=== PATIENT | female | born 1995 | race Caucasian/White ===

== ENCOUNTER 2020-10-16 14:19 | Emergency (ER) | payer BC, MEDICAID, SELFPAY ==
[2020-10-16 14:31] VITALS: BP 128/74; PULSE 66; RESP 20; TEMP 36.7; O2SAT 98; BMI 33.2
--- NOTE | 2020-10-16 14:36 | HMH.EDUTC ---
[facility] – [place] Disposition Clinical Impression: Encounter for laboratory testing for COVID-19 virus Disposition: Home, Self-Care Condition on Discharge: Good Instructions: Preventing the Spread of Coronavirus Discharge Instructions Additional Instructions: *Monitor Temp, Over the counter Motrin or Tylenol as directed/as needed Tylenol every 4 hours and Motrin every 6 hours (as long as your family doctor has told you that you can take it) for fever or pain. and straight to ER if unable to lower temp less than 101.0 after medication given *Warm salt water gargles may help to soothe the throat *Throat Lozenges *Warm fluids like tea with honey may help to soothe the throat *Sleep elevated *Humidifier/Vaporizer Follow up IMMEDIATELY for new or worsening symptoms or no Noticeable improvement over the next 48-72 hours. 911 for difficulty breathing or swallowing You was tested for today for COVID19 your test result should be back in the next 24-48 hours, you may call to the [facility] later today or tomorrow to see if your test results are back and the result [phone] [facility] hours are 9am-9pm You was given a handout with instructions for Self Quarantine and Self isolation for while you wait on test results and what to do if they are positive If you are positive the Health Dept will be contacting you also Referrals: Malathi Garrison APRN [Primary Care Provider] - As needed Forms: Work/School Release Time of Disposition: 14:40 Medical Decision Making - Dwight Inquiry Pt receiving controlled substance: No Dwight was queried for this patient: No Vital Signs: 10/16/20 14:31 Temperature 98.1 F Temperature Source Oral Pulse Rate [Radial] 66 Respiratory Rate 20 Blood Pressure [Right Arm] 128/74 Blood Pressure Mean [Right Arm] 92 Blood Pressure Source [Right Arm] Automatic Cuff Blood Pressure Position [Right Arm] Sitting 02 Sat by Pulse Oximetry 98 Oxygen Delivery Method Room Air Orders (Tests/Meds): ORDERS Category Date Time Status Covid-19 Nasal PCR Sendout [place] Routine Lab 10/16/20 14:26 Ordered [facility] [place] HPI - General Stated complaint: covid test Time Seen by Provider: 10/16/20 14:36 Mode of Arrival: Ambulatory Source of Information: Patient Limitations: No Limitations Description of Symptoms (Recalled from Triage Doc. by RN): covid test HEENT Symptoms (Recalled from RN notes): No Resp Symptoms (Recalled from RN notes): No Skin Symptoms (Recalled from RN notes): No MS Symptoms (Recalled from RN notes): No Functional Status (Recalled from RN notes): wnl - History of Present Illness Provider Complaint: Patient states that she was exposed to someone who tested positive for COVID States that they are unsure of how long her family member had it and how many times she may have been exposed Denies symptoms - Related Data Allergies Allergy/AdvReac Type Severity Reaction Status Date / Time No Known Allergies Allergy Unverified 11/16/17 15:27 - Worker's Comp Is this a Worker's Comp case?: No [facility] History - Hepatitis A Screen Drug use history?: No High risk sexual behaviors?: No History of sexually transmitted infection?: No Currently employed?: No Childcare worker?: No Do you have indoor plumbing?: Yes Do you have electricity?: Yes Attestation statement:: This patient has been screened for Hepatitis A risk factors. I have reviewed the patient's past medical history: Yes - Social History Alcohol Intake: never Occupational Status: other ROS Obtained: Yes All systems reviewed & no additional complaints, Yes Systems reviewed as appropriate & no additional complaints - Constitutional Constitutional: Reports system reviewed and no additional complaints, except as docu, Denies body ache, Denies chills, Denies fever(s), Denies headache(s) - ENT Ears, Nose, Mouth, and Throat: Reports system reviewed and no additional complaints, except as docu - Cardiovascular Cardiovascular: Reports system reviewed and no rachel
[2020-10-16 14:45] VITALS: BP 128/74; PULSE 66; RESP 20; TEMP 36.7; O2SAT 98
[2020-10-17 09:39] LABS: Adenovirus,PCR Not Detected (NotDetected); Bordetella Pertussis Not Detected (NotDetected); Chlamydophila Pneumoniae, PCR Not Detected (NotDetected); Coronavirus 19, PCR Not Detected (NotDetected); Coronavirus 229E Not Detected (NotDetected); Coronavirus NL63 Not Detected (NotDetected); Coronavirus OC43 Not Detected (NotDetected); Coronovirus HKU1,PCR Not Detected (NotDetected); Human Metapneumovirus Not Detected (NotDetected); Influenza A, PCR Not Detected (NotDetected); Influenza AH1, 2009 Not Detected (NotDetected); Influenza AH1, PCR Not Detected (NotDetected); Influenza AH3,PCR Not Detected (NotDetected); Influenza B, PCR Not Detected (NotDetected); Mycoplasma Pneumoniae, PCR Not Detected (NotDetected); Parainfluenza 1, PCR Not Detected (NotDetected); Parainfluenza 2, PCR Not Detected (NotDetected); Parainfluenza 3, PCR Not Detected (NotDetected); Parainfluenza 4, PCR Not Detected (NotDetected); Respiratory Syncytial Virus Not Detected (NotDetected); Rhinovirus/Enterovirus Not Detected (NotDetected)
== END 2020-10-16 14:47 | disposition home or self-care (01) ==
PROVIDERS: Emergency Provider Nurse Practitioner; PCP Nurse Practitioner
DX: Z20.828 Contact with and (suspected) exposure to other viral communicable diseases (principal)
CPT/HCPCS: 87581; 87633; 87798; 99201; U0003; U0004

== ENCOUNTER 2020-10-21 18:26 | Emergency (ER) | payer BC, MEDICAID, SELFPAY ==
[2020-10-21 18:30] VITALS: BP 111/79; PULSE 82; RESP 20; TEMP 36.9; O2SAT 99; BMI 33.2
--- NOTE | 2020-10-21 18:45 | HMH.EDUTC ---
[facility] – [place] Disposition Clinical Impression: Encounter for laboratory testing for COVID-19 virus Disposition: Home, Self-Care Condition on Discharge: Good Instructions: Preventing the Spread of Coronavirus Discharge Instructions Additional Instructions: *Monitor Temp, Over the counter Motrin or Tylenol as directed/as needed Tylenol every 4 hours and Motrin every 6 hours (as long as your family doctor has told you that you can take it) for fever or pain. and straight to ER if unable to lower temp less than 101.0 after medication given *Warm salt water gargles may help to soothe the throat *Throat Lozenges *Warm fluids like tea with honey may help to soothe the throat *Sleep elevated *Humidifier/Vaporizer Follow up IMMEDIATELY for new or worsening symptoms or no Noticeable improvement over the next 48-72 hours. 911 for difficulty breathing or swallowing You was tested for today for COVID19 your test result should be back in the next 24-48 hours, you may call to the [facility] later today or tomorrow to see if your test results are back and the result [phone] [facility] hours are 9am-9pm You was given a handout with instructions for Self Quarantine and Self isolation for while you wait on test results and what to do if they are positive If you are positive the Health Dept will be contacting you also Referrals: Malathi Garrison APRN [Primary Care Provider] - As needed Forms: Work/School Release Time of Disposition: 18:55 Medical Decision Making - Dwight Inquiry Pt receiving controlled substance: No Dwight was queried for this patient: No Vital Signs: 10/21/20 18:30 Temperature 98.4 F Temperature Source Oral Pulse Rate [Right Brachial] 82 Respiratory Rate 20 Blood Pressure [Right Arm] 111/79 Blood Pressure Mean [Right Arm] 89 Blood Pressure Source [Right Arm] Automatic Cuff Blood Pressure Position [Right Arm] Sitting 02 Sat by Pulse Oximetry 99 Oxygen Delivery Method Room Air - Lab Data Lab results reviewed: Yes: I reviewed the patient's lab results. [facility] [place] HPI - General Stated complaint: cov test Time Seen by Provider: 10/21/20 18:45 Mode of Arrival: Ambulatory Source of Information: Patient Limitations: No Limitations Description of Symptoms (Recalled from Triage Doc. by RN): PATIENT REQUESTING COVID TEST D/T EXPOSURE; C/O HEADACHE, FATIGUE, AND BILATERAL PINK EYE X 4 DAYS HEENT Symptoms (Recalled from RN notes): Yes Resp Symptoms (Recalled from RN notes): No Skin Symptoms (Recalled from RN notes): No MS Symptoms (Recalled from RN notes): No Functional Status (Recalled from RN notes): WNL - History of Present Illness Provider Complaint: Patient states that she did a virtual visit with PCP about 4-5 days ago States that she has had pink eye and has been using erythromycin drops and that is much better States that she was needing to come in and get tested for COVID due to her PCP recommended that she get tested because conjunctivitis is a symptoms of COVID and she was recently exposed by her parents - Related Data Home Medications Medication Instructions Recorded Confirmed Sertraline HCl [Zoloft 50mg tablet] 50 mg PO DAILY 10/21/20 10/21/20 Allergies Allergy/AdvReac Type Severity Reaction Status Date / Time No Known Allergies Allergy Verified 10/21/20 18:43 - Worker's Comp Is this a Worker's Comp case?: No [facility] History - Hepatitis A Screen Drug use history?: No High risk sexual behaviors?: No History of sexually transmitted infection?: No Currently employed?: No Childcare worker?: No Do you have indoor plumbing?: Yes Do you have electricity?: Yes Attestation statement:: This patient has been screened for Hepatitis A risk factors. I have reviewed the patient's past medical history: Yes - Social History Alcohol Intake: never Occupational Status: other ROS Obtained: Yes All systems reviewed & no additional complaints, Yes Systems reviewed as appropriate & no additional complaints - Constitu
[2020-10-21 18:54] LABS: UTC Pregnancy Test, Urine Negative (Negative)
[2020-10-21 19:01] VITALS: BP 111/79; PULSE 82; RESP 20; TEMP 36.9; O2SAT 99
[2020-10-23 15:15] LABS: Covid-19 Nasal PCR Sendout Lex Positive
== END 2020-10-21 19:03 | disposition home or self-care (01) ==
PROVIDERS: Emergency Provider Nurse Practitioner; PCP Nurse Practitioner
DX: U07.1 COVID-19 (principal); H10.33 Unspecified acute conjunctivitis, bilateral
CPT/HCPCS: 81025; 99202; U0004

== ENCOUNTER 2020-11-03 15:55 | Emergency (ER) | payer BC, MEDICAID, SELFPAY ==
[2020-11-03 16:20] VITALS: BP 143/88; PULSE 95; RESP 16; TEMP 36.7; O2SAT 94; BMI 32.2
--- NOTE | 2020-11-03 16:41 | HMH.EDUTC ---
[facility] [place] Clinical Impression: Encounter for laboratory testing for COVID-19 virus Disposition: Home, Self-Care Condition on Discharge: Good Instructions: Preventing the Spread of Coronavirus Discharge Instructions Referrals: Malathi Garrison APRN [Primary Care Provider] - Time of Disposition: 16:44 Medical Decision Making - Dwight Inquiry Pt receiving controlled substance: No Vital Signs: 11/03/20 16:20 Temperature 98.0 F Temperature Source Oral Pulse Rate [Right Brachial] 95 H Respiratory Rate 16 Blood Pressure [Right Arm] 143/88 H Blood Pressure Mean [Right Arm] 106 Blood Pressure Source [Right Arm] Automatic Cuff Blood Pressure Position [Right Arm] Sitting 02 Sat by Pulse Oximetry 94 L Oxygen Delivery Method Room Air Orders (Tests/Meds): ORDERS Category Date Time Status Covid-19 Nasal PCR ([facility]) Routine Lab 11/03/20 16:11 Ordered [facility] [place] - General Chief complaint: [facility] Stated complaint: covid +, retest for work Time Seen by Provider: 11/03/20 16:41 Mode of Arrival: Ambulatory Source of Information: Patient Limitations: No Limitations Description of Symptoms (Recalled from Triage Doc. by RN): PATIENT TESTED POSITIVE FOR COVID ON 10/21 AND IS NEEDING A NEGATIVE TEST TO RETURN TO WORK HEENT Symptoms (Recalled from RN notes): No Resp Symptoms (Recalled from RN notes): No Skin Symptoms (Recalled from RN notes): No MS Symptoms (Recalled from RN notes): No Functional Status (Recalled from RN notes): WNL - History of Present Illness Provider Complaint: 25 yr old female presents for covid test. pt states she tested positive on 10/21 and isolated by now needs to retest to return to work. pt states all symptoms has gone away - Related Data Home Medications Medication Instructions Recorded Confirmed Sertraline HCl [Zoloft 50mg tablet] 50 mg PO DAILY 10/21/20 10/21/20 Allergies Allergy/AdvReac Type Severity Reaction Status Date / Time No Known Allergies Allergy Verified 10/21/20 18:43 - Worker's Comp Is this a Worker's Comp case?: No [facility] History - Hepatitis A Screen Drug use history?: No High risk sexual behaviors?: No History of sexually transmitted infection?: No Currently employed?: No Childcare worker?: No Do you have indoor plumbing?: Yes Do you have electricity?: Yes Attestation statement:: This patient has been screened for Hepatitis A risk factors. I have reviewed the patient's past medical history: Yes - Social History Alcohol Intake: never Occupational Status: other ROS Obtained: Yes Systems reviewed as appropriate & no additional complaints - Constitutional Constitutional: Reports system reviewed and no additional complaints, except as docu, Denies fever(s) - Eyes Eyes: Reports system reviewed and no additional complaints, except as docu, Denies change in vision - ENT Ears, Nose, Mouth, and Throat: Reports system reviewed and no additional complaints, except as docu, Denies sore throat - Cardiovascular Cardiovascular: Reports system reviewed and no additional complaints, except as docu, Denies chest pain at rest - Respiratory Respiratory: Yes system reviewed and no additional complaints, except as docu, No chest congestion - Gastrointestinal Gastrointestingal: Reports: system reviewed and no additional complaints, except as docu. Denies: nausea - Genitourinary Female Genitourinary: Reports system reviewed and no additional complaints, except as docu - Musculoskeletal Musculoskeletal: Reports system reviewed and no additional complaints, except as docu, Denies joint pain - Integumentary/Breasts Skin/Breast: Reports system reviewed and no additional complaints, except as docu, Denies rash - Neurologic Neurologic: Reports system reviewed and no additional complaints, except as docu, Denies dizziness - Endocrine Endocrine: Reports system reviewed and no additional complaints, except as docu, Denies fatigue - He
[2020-11-03 16:48] VITALS: BP 143/88; PULSE 95; RESP 16; TEMP 36.7; O2SAT 94
== END 2020-11-03 16:50 | disposition home or self-care (01) ==
PROVIDERS: Emergency Provider Nurse Practitioner Family; PCP Nurse Practitioner
DX: U07.1 COVID-19 (principal)
CPT/HCPCS: 99201; U0003

== ENCOUNTER → 2022-10-16 18:45 | Outpatient (CLI) | payer BC, MEDICAID, SELFPAY ==
[2022-10-16 19:17] LABS: Coronavirus 19, PCR Not Detected (NotDetected); Influenza A, PCR Not Detected (NotDetected); Influenza B, PCR Not Detected (NotDetected)
== END ==
PROVIDERS: PCP Physician Assistant; Visit Provider Physician Assistant
DX: R52 Pain, unspecified (principal)
CPT/HCPCS: C9803; U0003; U0005

== ENCOUNTER → 2023-01-16 12:33 | Outpatient (CLI) | payer BC, MEDICAID, SELFPAY ==
[2023-01-17 12:09] LABS: Progesterone 12.6 ng/mL (.)
== END ==
PROVIDERS: PCP Nurse Practitioner; Visit Provider Obstetrics & Gynecology
DX: N92.6 Irregular menstruation, unspecified (principal); Z32.00 Encounter for pregnancy test, result unknown
CPT/HCPCS: 36415; 84144; 84702

== ENCOUNTER → 2023-01-19 09:59 | Outpatient (CLI) | payer BC, SELFPAY ==
[2023-01-19 10:58] LABS: Basophils # 0.1 K/mm3 (0-0.2); Basophils % 0.7 % (0.1-2.0); Eosinophils # 0.1 K/mm3 (0.0-0.4); Eosinophils % 0.9 % (0.1-12.0); Hematocrit 42.1 % (37.0-47.0); Hemoglobin 13.4 g/dL (12.2-16.2); Lymphocytes # 1.2 K/mm3 (0.7-4.5); Lymphocytes % 17.6 % (10-50); Mean Corpuscular HGB Conc 31.8 g/dL (31.8-35.4); Mean Corpuscular Hemoglobin 25.7 pg (27.0-31.2); Mean Corpuscular Volume 80.9 fl (81-99); Mean Platelet Volume 9.8 fl (7.4-10.4); Monocytes # 0.4 K/mm3 (0.1-1.0); Monocytes % 5.7 % (1.7-9.3); Neutrophils % 75.1 % (37.0-80.0); Platelet Count 223 K/mm3 (142-424); Red Blood Count 5.21 M/mm3 (4.20-5.40); Red Cell Distribution Width 15.5 % (11.5-17.5); White Blood Count 6.7 K/mm3 (4.8-10.8)
[2023-01-20 05:29] LABS: Rubella Antibodies, IgG 1.71 index (Immune >0.99)
[2023-01-20 08:16] LABS: HIV Screen 4th Generation wRfx Non Reactive (Non Reactive)
[2023-01-20 11:22] LABS: Rapid Plasma Reagin Ab Titer Non Reactive (NonRea<1:1)
[2023-01-21 23:04] LABS: Hepatitis B Surface Antigen NEGATIVE; Hepatitis C Antibody NON REACTIVE
== END ==
PROVIDERS: PCP Nurse Practitioner; Visit Provider Obstetrics & Gynecology
DX: Z34.90 Encounter for supervision of normal pregnancy, unspecified, unspecified trimester (principal)
CPT/HCPCS: 36415; 85025; 86593; 86703; 86762; 86850; 87086; 87340; 87380; G0432

== ENCOUNTER → 2023-01-25 23:27 | Outpatient (CLI) | payer BC, SELFPAY ==
[2023-01-25 19:16] LABS: Adenovirus,PCR Not Detected (NotDetected); Bordetella Pertussis Not Detected (NotDetected); Chlamydophila Pneumoniae, PCR Not Detected (NotDetected); Coronavirus 19, PCR Not Detected (NotDetected); Coronavirus 229E Not Detected (NotDetected); Coronavirus NL63 Not Detected (NotDetected); Coronavirus OC43 Not Detected (NotDetected); Coronovirus HKU1,PCR Not Detected (NotDetected); Human Metapneumovirus Not Detected (NotDetected); Influenza A, PCR Not Detected (NotDetected); Influenza AH1, 2009 Not Detected (NotDetected); Influenza AH1, PCR Not Detected (NotDetected); Influenza AH3,PCR Not Detected (NotDetected); Influenza B, PCR Not Detected (NotDetected); Mycoplasma Pneumoniae, PCR Not Detected (NotDetected); Parainfluenza 1, PCR Not Detected (NotDetected); Parainfluenza 2, PCR Not Detected (NotDetected); Parainfluenza 3, PCR Not Detected (NotDetected); Parainfluenza 4, PCR Not Detected (NotDetected); Respiratory Syncytial Virus Not Detected (NotDetected); Rhinovirus/Enterovirus Not Detected (NotDetected)
[2023-01-25 19:40] LABS: Basophils % 0.4 % (0.1-2.0); Eosinophils # 0.2 K/mm3 (0.0-0.4); Eosinophils % 1.7 % (0.1-12.0); Hematocrit 40.1 % (37.0-47.0); Hemoglobin 13.1 g/dL (12.2-16.2); Lymphocytes % 11.8 % (10-50); Mean Corpuscular HGB Conc 32.7 g/dL (31.8-35.4); Mean Corpuscular Hemoglobin 26.5 pg (27.0-31.2); Mean Corpuscular Volume 80.8 fl (81-99); Mean Platelet Volume 10.6 fl (7.4-10.4); Monocytes # 0.5 K/mm3 (0.1-1.0); Monocytes % 5.3 % (1.7-9.3); Neutrophils # 7.1 K/mm3 (1.8-7.8); Neutrophils % 80.9 % (37.0-80.0); Platelet Count 226 K/mm3 (142-424); Red Blood Count 4.96 M/mm3 (4.20-5.40); Red Cell Distribution Width 15.6 % (11.5-17.5); White Blood Count 8.8 K/mm3 (4.8-10.8)
== END ==
PROVIDERS: PCP Nurse Practitioner; Visit Provider Nurse Practitioner
DX: J06.9 Acute upper respiratory infection, unspecified (principal)
CPT/HCPCS: 85025; 87581; 87632; 87798; C9803; U0003; U0005

== ENCOUNTER 2023-02-26 20:47 | Emergency (ER) | payer BC, MEDICAID, SELFPAY ==
[2023-02-26 20:55] VITALS: BP 132/98; PULSE 79; RESP 19; TEMP 36.8; O2SAT 98; BMI 35.2
[2023-02-26 21:30] VITALS: BP 120/64
--- NOTE | 2023-02-26 21:42 | HMH.EDGIBL ---
Discharge Plan Disposition Patient Disposition: Home, Self-Care Chief Complaint: Urogenital-Female Prescriptions Prescriptions: No Action prenat.vits,indy,[id number]-sotmo Tablet 1 tab PO DAILY ondansetron 4 mg tablet,disintegrating 4 mg PO Q8H PRN (Reason: nausea and vomiting) Qty: 60 0RF Referrals Follow up/Referrals: Malathi Garrison APRN [Primary Care Provider] - See instructions Clinical Impressions Clinical Impression: Constipation Instructions Patient Instructions: DI for Urinary Tract Infection (UTI), DI for Urinary Tract Infection in Children Discharge ED Provider: [facility] HPI General Chief complaint: Urogenital-Female Stated complaint: 12 Wk Pred Time Seen by Provider: 02/26/23 21:42 Mode of Arrival: Family Vehicle Source of Information: Patient Limitations: No Limitations Description of Symptoms (Recalled from ER Triage Doc. by RN): 27 yo female presents with CC CONSTIPATION. States she is with history of constipation during the previous . Currently is complicated by a possible hemorrhoid. Patient states she has attempted oral docusate and enema earlier with only a few rabbit turds . would like to be evaluated. History of Present Illness HPI Narrative: 27-year-old white female presents with complaint of constipation. She is 12 weeks and has history of constipation for which she takes laxatives but today she spent 2 hours straining and was unable to have a bowel movement she feels like the stool is right down in the rectum but she cannot pass it she is also noted that the straining is caused some bleeding from some hemorrhoids as well. The patient has no known drug allergies and no other medical problems Related Data Home Medications Medication Instructions Recorded Confirmed prenat.vits,indy,iqa-kzrr-ktalg 1 tab PO DAILY Supplement 01/19/23 02/26/23 Previous Rx's Medication Instructions Recorded ondansetron 4 mg disintegrating 4 mg PO Q8H PRN nausea and 02/08/23 tablet vomiting #60 tabs Allergies Allergy/AdvReac Type Severity Reaction Status Date / Time No Known Allergies Allergy Verified 02/23/23 12:58 [facility] Disclaimer: The information contained in this section may have been updated after the patient was seen, as this information can be updated by other users. Medical History Anxiety Depressed Surgical History Hx of wisdom tooth extraction Family History Other Diabetes FHx: mental illness Hypertension Thyroid disorder Social History Smoking Status: Never smoker alcohol intake: never substance use type: denies use current occupational status: employed and other Travel in the last 8 weeks: None ROS Obtained: Yes All systems reviewed & no additional complaints except as documented Physical Exam General General appearance: alert and in no apparent distress Head Head exam: atraumatic and normocephalic Eye Eye exam: Present normal appearance and PERRL Neck Neck exam: Present normal inspection Chest Chest inspection: Present normal inspection Respiratory Respiratory exam: Present wheezes (Bilateral faint generalized wheezes) Cardiovascular Cardiovascular exam: Present regular rate and normal rhythm Abdominal Exam Abdominal exam: Present soft; Absent distention or tenderness Neurological Exam Neurological exam: Present alert and oriented X3 Medical Decision Making Medical Records MR Comment: 27-year-old white female presented with constipation. She had strained actually rectal bleeding from the straining. She is 12 weeks and has been taking laxatives in the form of docusate but is still constipated. We have checked her for a fecal impaction and it was really too high to disimp
[2023-02-27 00:16] VITALS: BP 112/70; PULSE 73; RESP 17; TEMP 36.8; O2SAT 98
== END 2023-02-27 00:27 | disposition home or self-care (01) ==
PROVIDERS: Emergency Provider Emergency Medicine; PCP Nurse Practitioner
DX: O99.611 Diseases of the digestive system complicating pregnancy, first trimester (principal); K59.00 Constipation, unspecified; Z3A.12 12 weeks gestation of pregnancy
CPT/HCPCS: 96372; 99283; 99284

== ENCOUNTER → 2023-04-20 12:43 | Outpatient (CLI) | payer BC, MEDICAID, SELFPAY ==
--- NOTE | 2023-04-20 12:43 | US_ITS ---
FINAL REPORT CLINICAL HISTORY: 20 weeks anatomy scan please use anatomy tempate FINDINGS: There is a single live intrauterine gestation. Presentation is breech. The cervix is closed and measures 3.6 cm. Placenta is posterior grade 1. movement is noted. Heart rate is detected at 121 beats per minute. Three-vessel cord with satisfactory umbilical cord insertion. Four-chamber heart is noted. ABDOMEN: Both kidneys are unremarkable. Stomach is unremarkable. SPINE: No anomalies identified. AMNIOTIC FLUID: Appropriate amount. MEASUREMENTS: ULTRASOUND AGE: 19 weeks 6 days. GESTATION AGE: 20 weeks 0 days. ESTIMATED WEIGHT: 337 g GROWTH PERCENTILE: 56 % BPD: 4.43 cm corresponding to 19 weeks 3 days. OFD: 5.95 cm corresponding to 20 weeks 3 days. HC: 16.48 cm corresponding to 19 weeks 2 days. AC: 15.27 cm corresponding to 20 weeks 4 days. FL: 3.25 cm corresponding to 20 weeks 1 days. CEREBELLUM: 1.88 cm corresponding to 19 weeks 3 days. HUMERUS: 3.05 cm corresponding to 20 weeks 1 day. HC/AC: 1.08 CI: 74% FL/BPD: 73% FL/AC: 21% IMPRESSION: Single living IUP with an ultrasound age of 19 weeks 6 days. Reviewed, Interpreted and Dictated by Rancho Kraft III, MD Transcribed by Hina Quinn Authenticated and . [facility]
== END ==
PROVIDERS: PCP Nurse Practitioner; Visit Provider Obstetrics & Gynecology
DX: Z34.90 Encounter for supervision of normal pregnancy, unspecified, unspecified trimester (principal); Z3A.20 20 weeks gestation of pregnancy
CPT/HCPCS: 76811

== ENCOUNTER → 2023-06-15 07:56 | Outpatient (CLI) | payer BC, MEDICAID, SELFPAY ==
[2023-06-15 08:29] LABS: Glucose,Fasting 92 mg/dl (74-100)
[2023-06-15 08:30] LABS: Basophils % 0.2 % (0.1-2.0); Eosinophils # 0.1 K/mm3 (0.0-0.4); Hematocrit 36.7 % (37.0-47.0); Hemoglobin 12.1 g/dL (12.2-16.2); Lymphocytes # 1.2 K/mm3 (0.7-4.5); Lymphocytes % 18.8 % (10-50); Mean Corpuscular HGB Conc 32.9 g/dL (31.8-35.4); Mean Corpuscular Hemoglobin 26.5 pg (27.0-31.2); Mean Corpuscular Volume 80.6 fl (81-99); Mean Platelet Volume 10.9 fl (7.4-10.4); Monocytes # 0.4 K/mm3 (0.1-1.0); Monocytes % 6.4 % (1.7-9.3); Neutrophils # 4.8 K/mm3 (1.8-7.8); Neutrophils % 73.5 % (37.0-80.0); Platelet Count 168 K/mm3 (142-424); Red Blood Count 4.55 M/mm3 (4.20-5.40); Red Cell Distribution Width 15.3 % (11.5-17.5); White Blood Count 6.5 K/mm3 (4.8-10.8)
[2023-06-15 08:44] LABS: Amphetamine/Metha Screen,Urine Negative ng/ml (<1000); Benzodiazepines Screen,Urine Negative ng/ml (<200)
[2023-06-15 08:45] LABS: Barbiturates Screen,Urine Negative ng/ml (<200)
[2023-06-15 08:46] LABS: Cannabinoid Screen,Urine Negative ng/ml (<50); Cocaine Screen,Urine Negative ng/ml (<300)
[2023-06-15 08:47] LABS: Methadone Screen,Urine Negative ng/ml (<300); Opiate Screen,Urine Negative ng/ml (<300)
[2023-06-15 08:48] LABS: Phencyclidine Screen,Urine Negative ng/ml (<25)
[2023-06-15 10:00] LABS: Glucose 1 Hour 132 mg/dL (74-100)
== END ==
PROVIDERS: PCP Nurse Practitioner; Visit Provider Obstetrics & Gynecology
DX: Z34.93 Encounter for supervision of normal pregnancy, unspecified, third trimester (principal); Z3A.29 29 weeks gestation of pregnancy
CPT/HCPCS: 36415; 80305; 82951; 85025

== ENCOUNTER → 2023-07-20 14:45 | Outpatient (CLI) | payer BC, MEDICAID, SELFPAY ==
--- NOTE | 2023-07-20 14:54 | ECG_ITS ---
APPROVED REPORT Exam: Resting ECG HR:101 bpm ECG Measurements Heart Rate 101 AXES [place] 116 P 18 QRSd 90 QRS 10 QT 329 T 0 QTc 387 Conclusion SINUS TACHYCARDIA WITH SHORT [place] INTERVAL VOLTAGE CRITERIA FOR LVH [MEETS CRITERIA IN ONE OF: R(aVL), S(V1), R(V5), R(V5/V6)+S(V1)] NONSPECIFIC T-WAVE ABNORMALITY ABNORMAL ECG UNCONFIRMED REPORT Electronically signed by : Felipe Sheikh MD 07/20/2023 19:40:12
== END ==
PROVIDERS: PCP Nurse Practitioner; Visit Provider Nurse Practitioner Obstetrics & Gynecology
DX: R06.02 Shortness of breath (principal)
CPT/HCPCS: 93005

== ENCOUNTER → 2023-08-04 11:41 | Outpatient (CLI) | payer BC, MEDICAID, SELFPAY ==
[2023-08-04 12:43] LABS: Chloride 105 mmol/L (98-107); Sodium 135 mmol/L (136-145)
[2023-08-04 12:46] LABS: Alanine Aminotransferase 28 U/L (12-78); Alkaline Phosphatase 202 U/L (38-126); Aspartate Amino Transferase 35 U/L (14-36); Bilirubin,Direct 0.3 mg/dl (0.0-0.4); Bilirubin,Total 0.3 mg/dl (0.2-1.3); Blood Urea Nitrogen 7 mg/dl (7-17); Carbon Dioxide 21 mmol/L (22.0-30.0); Estimated Glomerular Filt Rate 189 ml/min (>60); GFR (African American) 228 ML/MIN (>60)
[2023-08-04 12:47] LABS: Albumin Level 3.1 g/dl (3.5-5.0); Calcium 9.2 mg/dl (8.4-10.2); Chol/HDL Ratio 4.4 (1-3.5); Cholesterol 279 mg/dl (140-200); Glucose 97 mg/dl (74-100); HDL Cholesterol 63 mg/dl (40-60); Magnesium 1.7 mg/dl (1.6-2.3); Total Protein,Serum 6.2 g/dl (6.3-8.2); Triglycerides 209 mg/dl (30-150); VLDL Cholesterol 42 mg/dL (0-40)
[2023-08-04 12:52] LABS: Basophils % 0.3 % (0.1-2.0); Eosinophils # 0.1 K/mm3 (0.0-0.4); Eosinophils % 0.8 % (0.1-12.0); Hematocrit 36.5 % (37.0-47.0); Hemoglobin 11.7 g/dL (12.2-16.2); Lymphocytes % 14.1 % (10-50); Mean Corpuscular HGB Conc 32.1 g/dL (31.8-35.4); Mean Corpuscular Hemoglobin 24.6 pg (27.0-31.2); Mean Corpuscular Volume 76.6 fl (81-99); Mean Platelet Volume 11.8 fl (7.4-10.4); Monocytes # 0.4 K/mm3 (0.1-1.0); Monocytes % 5.3 % (1.7-9.3); Neutrophils # 5.3 K/mm3 (1.8-7.8); Neutrophils % 79.4 % (37.0-80.0); Platelet Count 152 K/mm3 (142-424); Red Blood Count 4.76 M/mm3 (4.20-5.40); Red Cell Distribution Width 15.4 % (11.5-17.5); White Blood Count 6.7 K/mm3 (4.8-10.8)
[2023-08-04 13:02] LABS: Free T4 (Free Thyroxine) 0.75 ng/dl (0.78-2.19)
[2023-08-04 13:17] LABS: Thyroid Stimulating Hormone 0.87 uIU/mL (0.465-4.68)
== END ==
PROVIDERS: PCP Nurse Practitioner; Visit Provider Physician Assistant
DX: R06.00 Dyspnea, unspecified (principal); O99.413 Diseases of the circulatory system complicating pregnancy, third trimester; Z3A.35 35 weeks gestation of pregnancy; I47.1 Supraventricular tachycardia; R60.0 Localized edema; R94.31 Abnormal electrocardiogram [ECG] [EKG]
CPT/HCPCS: 36415; 80048; 80061; 80076; 83735; 84439; 84443; 85025

== ENCOUNTER → 2023-08-06 14:45 | Outpatient (CLI) | payer BC, MEDICAID, SELFPAY ==
--- NOTE | 2023-08-06 14:46 | US_ITS ---
PROCEDURE: US OB BIOPHYSICAL PROFILE CLINICAL INDICATION: lga COMPARISON: 20 week anatomical scan April 20, 2023 FINDINGS: Transabdominal sonographic images of the uterus were obtained. From her established due date she is 35weeks 3days. The following parameters are obtained: Viable fetus in the cephalic presentation with a fundal placenta grade 2. Average ultrasound age is 36weeks 0 days. Estimated due date by ultrasound is 09/03/2023. Estimated weight is 6lb 2.34oz. 61 percentile. heart rate: 125bpm bpm. BPD: 36weeks 6days OFD: 36weeks 6days HC: 36 weeks 0 days AC: 36 weeks 1 day FL: 35 weeks 2 days HC/AC: 0.99 Cephalic index: 0.81 FL/BPD: 0.76 FL/AC: 0.21 Amniotic fluid index: 9.22cm Qualitative AFV: 2 breathing movements: 2 Gross body movements: 2 Tone: 2 Biophysical profile score: 8 No obvious anomalies evident.Right kidney, four-chamber heart, three-vessel cord appear normal. The left kidney is significantly dilated at the renal pelvis and the dilation measures 21 mm. IMPRESSION: 1. Viable fetus in the cephalic presentation with a fundal placenta grade 1. 2. The fluid is within normal limits with an amniotic fluid index of 9.22 cm. 3. There is gross dilation of the pelvis of the left kidney. It measures 21 mm. At the 20 week anatomical scan there was 6.1 mm of left renal pelvis dilation. 4. Suggest pediatric urology consult post delivery. 5. Rest of the anatomical scan appears normal. 6. There has been good interval growth with the fetus currently 61st percentile. Dictated by: Dipesh Farrell MD 08/09/2023 09:47 Dipesh Farrell MD in OV 08/09/2023 09:47
[2023-08-06 17:00] LABS: Alanine Aminotransferase 36 U/L (12-78); Aspartate Amino Transferase 41 U/L (14-36)
[2023-08-06 17:01] LABS: Albumin Level 2.9 g/dl (3.5-5.0); Alkaline Phosphatase 193 U/L (38-126); Bilirubin,Direct 0.3 mg/dl (0.0-0.4); Bilirubin,Total 0.3 mg/dl (0.2-1.3); Cholesterol 258 mg/dl (140-200); Total Protein,Serum 5.8 g/dl (6.3-8.2); Triglycerides 255 mg/dl (30-150); VLDL Cholesterol 51 mg/dL (0-40)
[2023-08-06 18:28] LABS: Chol/HDL Ratio 4.9 (1-3.5); HDL Cholesterol 53 mg/dl (40-60)
== END ==
PROVIDERS: Physician Assistant; PCP Nurse Practitioner; Visit Provider Nurse Practitioner Obstetrics & Gynecology
DX: O36.60X0 Maternal care for excessive fetal growth, unspecified trimester, not applicable or unspecified (principal); R06.00 Dyspnea, unspecified; R60.0 Localized edema; R94.31 Abnormal electrocardiogram [ECG] [EKG]; Z3A.35 35 weeks gestation of pregnancy
CPT/HCPCS: 36415; 76816; 76819; 80061; 80076; 85378

== ENCOUNTER 2023-08-09 10:13 | Outpatient (CLI) | payer BC, MEDICAID, SELFPAY ==
[2023-08-09 10:24] VITALS: BMI 37.8
[2023-08-09 10:38] LABS: Microscopic, Urine URINE MICROSCOPIC (MICROSCOPIC)
[2023-08-09 10:41] VITALS: BP 125/81; PULSE 97; RESP 20; TEMP 36.6; O2SAT 98; BMI 37.8
[2023-08-09 10:49] LABS: Appearance,Urine CLEAR (Clear); Bilirubin,Urine Negative (Negative); Blood, Urine Negative (Negative); Color,Urine YELLOW (Yellow); Glucose,Urine (UA) Negative (Negative); Ketones,Urine TRACE (Negative); Leukocyte Esterase,Urine Negative (Negative); Nitrate,Urine Negative (Negative); PH,Urine 6.5 (5.0-8.5); Protein,Urine Negative (Negative); Specific Gravity, Urine >= 1.030 (1.005-1.030); Urobilinogen,Urine 0.2 EU/dl (0.2)
[2023-08-09 11:02] LABS: Amphetamine/Metha Screen,Urine Negative ng/ml (<1000); Barbiturates Screen,Urine Negative ng/ml (<200)
[2023-08-09 11:03] LABS: Benzodiazepines Screen,Urine Negative ng/ml (<200)
[2023-08-09 11:04] LABS: Cannabinoid Screen,Urine Negative ng/ml (<50); Cocaine Screen,Urine Negative ng/ml (<300)
[2023-08-09 11:05] LABS: Methadone Screen,Urine Negative ng/ml (<300)
[2023-08-09 11:06] LABS: Opiate Screen,Urine Negative ng/ml (<300); Phencyclidine Screen,Urine Negative ng/ml (<25)
[2023-08-09 11:08] LABS: Bacteria,Urine Trace /lpf; Mucus,Urine Trace /lpf; Squamous Epithelial Cell,Urine Occasional #/hpf (0-5); WBC,Urine Occasional #/hpf (0-3)
[2023-08-09 12:57] LABS: Chloride 107 mmol/L (98-107); Sodium 136 mmol/L (136-145)
[2023-08-09 13:00] LABS: Blood Urea Nitrogen 8 mg/dl (7-17); Calcium 9.2 mg/dl (8.4-10.2); Carbon Dioxide 20 mmol/L (22.0-30.0); Creatinine Clearance Estimated 288 mL/min (50-200); Estimated Glomerular Filt Rate 189 ml/min (>60); GFR (African American) 228 ML/MIN (>60); Glucose 69 mg/dl (74-100)
--- NOTE | 2023-08-09 13:15 | US_ITS ---
PROCEDURE INFORMATION: Exam: US Biophysical Profile Without Non-Stress Test Exam date and time: 08/09/2023 1:34 PM Age: 28 years old Clinical indication: status abnormalities: ; Abnormal heart rate; Single gestation; Third trimester (=28 weeks 0 days); TECHNIQUE: Imaging protocol: US biophysical profile without non-stress testing. Total images: [id number] COMPARISON: US OB /MATERNAL DETAIL 04/20/2023 1:15 PM FINDINGS: heart rate: 150 bpm Amniotic fluid index: KAYY is 13.6 cm. BIOPHYSICAL PROFILE: breathing movement (BPP): 2/2 body movement (BPP): 2/2 tone (BPP): 2/2 Amniotic fluid (BPP): 2/2 Biophysical profile score (BPP): 8/8 MATERNAL ANATOMY: Cervix: Cervical length measures 3.02 cm. IMPRESSION: Biophysical profile score 8/8
== END 2023-08-09 14:10 | disposition home or self-care (01) ==
LOC: OBOUT 10:14 → OB 10:15
PROVIDERS: PCP Nurse Practitioner; Visit Provider Obstetrics & Gynecology
DX: O26.893 Other specified pregnancy related conditions, third trimester (principal); Z3A.35 35 weeks gestation of pregnancy; R11.2 Nausea with vomiting, unspecified; R10.9 Unspecified abdominal pain
CPT/HCPCS: 59025; 76819; 80048; 80305; 81001; 96365; G0463

== ENCOUNTER → 2023-08-10 23:30 | Outpatient (CLI) | payer BC, MEDICAID, SELFPAY | PROVIDERS: PCP Nurse Practitioner; Visit Provider Obstetrics & Gynecology | DX: Z34.93 Encounter for supervision of normal pregnancy, unspecified, third trimester (principal); Z3A.36 36 weeks gestation of pregnancy | CPT/HCPCS: 86403 ==

== ENCOUNTER 2023-08-26 13:49 | Outpatient (CLI) | payer BC, MEDICAID, SELFPAY ==
[2023-08-26 14:13] VITALS: BP 128/81; PULSE 103; RESP 20; TEMP 36.9; O2SAT 99; BMI 38.2
== END 2023-08-26 14:52 | disposition home or self-care (01) ==
LOC: OBOUT 13:52 → OB 13:54
PROVIDERS: PCP Nurse Practitioner; Visit Provider Obstetrics & Gynecology
DX: O26.893 Other specified pregnancy related conditions, third trimester (principal); Z3A.38 38 weeks gestation of pregnancy
CPT/HCPCS: 59025; G0463

== ENCOUNTER 2023-08-30 04:52 | Inpatient (IN) | payer BC, MEDICAID, SELFPAY ==
[2023-08-30 04:55] VITALS: BMI 38.2
[2023-08-30 05:18] LABS: Microscopic, Urine URINE MICROSCOPIC (MICROSCOPIC)
[2023-08-30 05:26] LABS: Basophils % 0.3 % (0.1-2.0); Eosinophils # 0.1 K/mm3 (0.0-0.4); Hematocrit 36.4 % (37.0-47.0); Hemoglobin 11.6 g/dL (12.2-16.2); Lymphocytes # 1.2 K/mm3 (0.7-4.5); Mean Corpuscular HGB Conc 31.8 g/dL (31.8-35.4); Mean Corpuscular Hemoglobin 24.8 pg (27.0-31.2); Mean Corpuscular Volume 77.8 fl (81-99); Mean Platelet Volume 11.2 fl (7.4-10.4); Monocytes # 0.4 K/mm3 (0.1-1.0); Monocytes % 7.1 % (1.7-9.3); Neutrophils # 4.2 K/mm3 (1.8-7.8); Neutrophils % 70.6 % (37.0-80.0); Platelet Count 168 K/mm3 (142-424); Red Blood Count 4.68 M/mm3 (4.20-5.40); Red Cell Distribution Width 16.7 % (11.5-17.5); White Blood Count 5.9 K/mm3 (4.8-10.8)
[2023-08-30 05:28] LABS: Appearance,Urine CLOUDY (Clear); Bilirubin,Urine Negative (Negative); Blood, Urine Negative (Negative); Color,Urine YELLOW (Yellow); Glucose,Urine (UA) Negative (Negative); Ketones,Urine Negative (Negative); Leukocyte Esterase,Urine 1+ (Negative); Nitrate,Urine Negative (Negative); Protein,Urine Negative (Negative); Specific Gravity, Urine >= 1.030 (1.005-1.030); Urobilinogen,Urine 0.2 EU/dl (0.2)
[2023-08-30 05:40] LABS: Amphetamine/Metha Screen,Urine Negative ng/ml (<1000); Barbiturates Screen,Urine Negative ng/ml (<200)
[2023-08-30 05:41] LABS: Benzodiazepines Screen,Urine Negative ng/ml (<200)
[2023-08-30 05:42] VITALS: BP 138/85; PULSE 108; RESP 17; TEMP 36.4; O2SAT 98; BMI 38.2
[2023-08-30 05:42] LABS: Cannabinoid Screen,Urine Negative ng/ml (<50); Cocaine Screen,Urine Negative ng/ml (<300)
[2023-08-30 05:43] LABS: Methadone Screen,Urine Negative ng/ml (<300); Opiate Screen,Urine Negative ng/ml (<300)
[2023-08-30 05:44] LABS: Bacteria,Urine 2+ /lpf; Phencyclidine Screen,Urine Negative ng/ml (<25); Squamous Epithelial Cell,Urine 20-50 #/hpf (0-5); WBC,Urine 50-100 #/hpf (0-3)
--- NOTE | 2023-08-30 09:43 | EXP.LABOR.NO ---
Labor Note Subjective: Date: 08/30/23 Time: 07:20 irregular contractions Objective: NST:: Reactive Contractions:: every 4-5 minutes Cervical Dilation:: 2-3 Effacement:: 50% Station: -2 Membranes: artificially ruptured Fetus: Monitoring?: Yes monitoring type:: Internal and External Comment:: I inserted an IUPC Assessment: Labor progressing?: Yes Cephalopelvic disproportion?: No Plan: Anesthesia for epidural?: No Continue to labor down?: Yes Plan for ?: No Continue to monitor?: Yes Start pushing?: No Comment:: I ruptured membranes and there was clear fluid. I inserted an IUPC. She is doing well.
--- NOTE | 2023-08-30 09:44 | EXP.LABOR.NO ---
Labor Note Subjective: Date: 08/30/23 Time: 09:20 regular contraction Objective: NST:: Reactive Contractions:: every 2-3 minutes Cervical Dilation:: 4 Effacement:: 75% Station: -1 Membranes: artificially ruptured Fetus: Monitoring?: Yes monitoring type:: Internal and External Assessment: Labor progressing?: Yes Cephalopelvic disproportion?: No Plan: Anesthesia for epidural?: No Continue to labor down?: Yes Plan for ?: No Continue to monitor?: Yes Start pushing?: No Comment:: She seems to be progressing well. Nonstress test is reactive.
--- NOTE | 2023-08-30 09:45 | EXP.HP ---
History of Present Illness *Admission Date: 08/30/23 *Reason for visit:: Term , increased blood pressure *History of present illness: She is a 28-year-old 3 para 2 at 38 and 6 weeks gestational age. She had increased blood pressure my office last week. As result of that we elected to deliver her at term. Her blood pressure was 148/96 in my office. This was done twice. [facility] Disclaimer: The information contained in this section may have been updated after the patient was seen, as this information can be updated by other users. Medical History Anxiety Depressed Dilation of renal pelvis of fetus Surgical History Hx of wisdom tooth extraction Family History Diabetes FHx: mental illness Hypertension Thyroid disorder Social History Smoking Status: Never smoker alcohol intake: never substance use type: denies use current occupational status: employed Travel in the last 8 weeks: None Review of Systems Review of Systems Review of systems:: pertinent systems reviewed and negative unless documented below Meds Home Medications and Allergies Home Medications Medication Instructions Recorded Confirmed Type prenat.vits,indy,[id number] 1 tab PO DAILY Supplement 01/19/23 08/24/23 History ondansetron 4 mg disintegrating 4 mg PO Q8H PRN nausea and 02/08/23 08/24/23 Rx tablet vomiting #60 tabs ferrous sulfate 325 mg (65 mg 325 mg PO DAILY #30 tabs 06/22/23 08/24/23 Rx iron) tablet,delayed release sertraline 50 mg tablet (Zoloft) 50 mg PO DAILY #30 tabs 07/15/23 08/24/23 Rx New Prescriptions to Start Prescriptions: Allergies Allergy/AdvReac Type Severity Reaction Status Date / Time No Known Allergies Allergy Verified 08/24/23 13:52 Exam Data for Last 24 hours Vital signs and Labs for Last 24 Hours: Temp Pulse Resp BP Pulse Ox O2 Del Method 97.6 F 108 H 17 138/85 98 Room Air 08/30/23 05:42 08/30/23 05:42 08/30/23 05:42 08/30/23 05:42 08/30/23 05:42 08/30/23 05:42 Laboratory Results - last 24 hr 08/30/23 05:05: Urine Color Yellow, Urine Appearance Cloudy, Urine pH 6.0, Ur Specific [place] >= 1.030, Urine Protein Negative, Urine Glucose (UA) Negative, Urine Ketones Negative, Urine Blood Negative, Urine Nitrate Negative, Urine Bilirubin Negative, Urine Urobilinogen 0.2, Ur Leukocyte Esterase 1+ A, Urine RBC None, Urine WBC 50-100, Ur Squamous Epith Cells 20-50, Urine Bacteria 2+, Urine Opiates Screen Negative, Urine Methadone Screen Negative, Ur Barbituates Screen Negative, Ur Phencyclidine Scrn Negative, Ur Amphetamines Screen Negative, U Benzodiazepines Scrn Negative, Urine Cocaine Screen Negative, U Marijuana (THC) Screen Negative 08/30/23 05:07: WBC 5.9, RBC 4.68, Hgb 11.6 L, Hct 36.4 L, MCV 77.8 L, MCH 24.8 L, MCHC 31.8, RDW 16.7, Plt Count 168, MPV 11.2 H, Neut % (Auto) 70.6, Lymph % (Auto) 21.0, [place] % (Auto) 7.1, Eos % (Auto) 1.0, Baso % (Auto) 0.3, Neut # (Auto) 4.2, Lymph # (Auto) 1.2, [place] # (Auto) 0.4, Eos # (Auto) 0.1, Baso # (Auto) 0.0, Blood Type O Positive, Antibody Screen Negative I & O for Last 24 hours: Intake & Output 08/27/23 08/28/23 08/29/23 08/30/23 11:59 11:59 11:59 11:59 Weight 196 lb Constitutional Constitutional: no acute distress *Routine HEENT Exam Head: Present normocephalic Eye: Present EOMI and PERRL ENT: Present mucous membranes moist *Routine Neck Exam Neck: Present supple; Absent lymphadenopathy *Routine Respiratory Exam Respiratory: Present CTA bilaterally *Routine Cardiovascular Exam Cardiovascular: Present RRR *Routine Abdominal Exam Abdominal: Present soft and normoactive bowel sounds; Absent tenderness *Routine Rectal Exam Rectal:: deferred *Routine Genitalia Exam Genitalia:: deferred *Routine Extremi
--- NOTE | 2023-08-30 11:16 | P.PNANES_ITS ---
[facility] Disclaimer: The information contained in this section may have been updated after the patient was seen, as this information can be updated by other users. Medical History Anxiety Depressed Dilation of renal pelvis of fetus Surgical History Hx of wisdom tooth extraction Family History Diabetes FHx: mental illness Hypertension Thyroid disorder Social History Smoking Status: Never smoker alcohol intake: never substance use type: denies use current occupational status: employed Travel in the last 8 weeks: None [facility] Anesthesia Checklist Patient Identification Patient Identification: Arm Band Structural Data Admitted From: Inpatient Planned Operative Procedure/s: Labor Epidural Consent for Planned Operative Procedure(s) Verified: Yes NPO Status Verified Time NPO: 06:00 Chart Verification Results Verified: CBC Additional verifications Patient : Yes Anesthesia Reactions: No Cardiovascular Assessment Heart Sounds: S1 & S2 Airway Assessment Mallampati Score:: Class II C-Spine Mobility Assessed: Yes TMJ Mobility Assessed: Yes Dentition: Good Dentition Neurological Assessment Level of Consciousness: Awake, Alert and Appropriate Hx Seizures: No Numbness or tingling in extremities: No Anesthesia Plan Anesthesia Risk discussed: Yes Anesthesia Plan: Verified ASA Class: II Anesthesia Type: Epidural
--- NOTE | 2023-08-30 11:51 | EXP.LABOR.NO ---
Labor Note Subjective: Date: 08/30/23 Time: 11:51 regular contraction Objective: NST:: Reactive Contractions:: every 2-3 minutes Cervical Dilation:: 6 Effacement:: 100% Station: 0 Membranes: artificially ruptured Fetus: Monitoring?: Yes monitoring type:: Internal Assessment: Labor progressing?: Yes Cephalopelvic disproportion?: No Plan: Anesthesia for epidural?: Yes Continue to labor down?: Yes Plan for ?: No Continue to monitor?: Yes Start pushing?: No
--- NOTE | 2023-08-30 13:42 | EXP.LABOR.NO ---
Labor Note Subjective: Date: 08/30/23 Time: 13:42 regular contraction Objective: NST:: Reactive Contractions:: every 2-3 minutes Cervical Dilation:: 9-10 Effacement:: 100% Station: +2 Membranes: artificially ruptured Fetus: Monitoring?: Yes monitoring type:: Internal Assessment: Labor progressing?: Yes Cephalopelvic disproportion?: No Plan: Anesthesia for epidural?: Yes Continue to labor down?: Yes Plan for ?: No Continue to monitor?: Yes Start pushing?: Yes Comment:: The baby's head is well down so we will go ahead and start pushing. We will plan a vaginal delivery.
--- NOTE | 2023-08-30 14:07 | P.PCN_ITS ---
Delivery Note Delivery Date:: 09/30/23 Delivery Time:: 13:52 Anesthesia Type: Epidural Was labor medically induced?: Yes Induction method: per pitocin protocol Gestational age (weeks): 38 delivered prior to 39 weeks?: Yes Justification for early elective delivery:: Gestational Hypertension Gender: Male at 1 minute: 7 at 5 minutes: 9 LAC or MLE?: LAC Delivery Procedure:: She is a 28-year-old 3 para 2 at 38 and 6 weeks gestational age. She has had increased blood pressure over the last week and as result of that we elected to induce her labor at term. She was started on IV oxytocin had her membranes ruptured. Under labor epidural she progressed to full dilation and delivered spontaneously a liveborn male child at 1:52 PM in the afternoon of August 30, 2023. On delivery the shoulder the head the anterior shoulder easily delivered followed by the rest the infant's body atraumatically. The baby cried spontaneously. It was noted that there was a true knot in the cord. We allowed the cord to continue to pulsate for approximately 1 minute. The baby was vigorous and the cord was then doubly clamped and cut. The was then handed off to the nurses who assigned Apgars of 7 at 1 and 9 at 5 minutes. We then obtained cord blood. Using gentle traction on the cord and countertraction the fundus I was able to easily deliver the placenta intact. Had a normal three-vessel cord. As p reviously dictated there was a true knot. She had a small first-degree perineal laceration that was repaired with interrupted 3-0 Vicryl Rapide suture. She has O Rh+ blood, she is rubella immune and was group B streptococcus negative. The estimated blood loss was 150 cc. Of note when the anterior shoulder was delivering I could hear a small crunch and it is noted that the baby has a collarbone fracture on the right. I did not apply excessive force when delivering the anterior shoulder. We allowed it to deliver spontaneously. Laceration:: vaginal Placental Delivery Description: Spontaneous
[2023-08-31 06:39] LABS: Hematocrit 34.6 % (37.0-47.0)
--- NOTE | 2023-08-31 08:52 | SW/DCPLANNER ---
I received a consult on this patient regarding: patient sometimes has a hard time paying bills and buying food. OB staff will provide patient w/ [facility] Resource List and contact me if any further assistance is needed.
--- NOTE | 2023-08-31 09:58 | P.PN_ITS ---
Subjective *Date: 08/31/23 *Time: 09:58 Interval history: She continues to do well. She is eating and drinking and ambulating. She is bottlefeeding. Her lochia is normal. Medical Exam Vital signs and Labs for Last 24 Hours: Laboratory Results - last 24 hr 08/31/23 05:41: Hgb 11.0 L, Hct 34.6 L I & O for Labs for Last 24 Hours: Intake & Output 08/28/23 08/29/23 08/30/23 08/31/23 11:59 11:59 11:59 11:59 Weight 196 lb Microbiology Reports for the Last 24 Hours: Microbiology 08/30/23 05:05 Urine,Clean Catch Urine Culture - Preliminary Head: Present normocephalic Neck: Present normal inspection Respiratory: Present normal respiratory effort; Absent accessory muscle use Assessment and Plan *Assessment and plan (1) Normal delivery: Status: Acute Category: Medical Code(s): O80 - Encounter for full-term uncomplicated delivery (2) -induced hypertension in third trimester: Status: Acute Category: Medical Code(s): O13.3 - Gestational [-induced] hypertension without significant prote inuria, third trimester (3) Obesity affecting : Status: Acute Qualifiers: Trimester: third trimester Obesity type affecting : severe obesity due to excess calories Qualified Code(s): O99.213 - Obesity complicating , third trimester; E66.01 - Morbid (severe) obesity due to excess calories Category: Medical Code(s): O99.210 - Obesity complicating , unspecified trimester Plan She is doing very well. We will plan to send her home tomorrow.
[2023-09-01 08:20] VITALS: BP 124/81; PULSE 82; RESP 20; TEMP 36.8; O2SAT 95
--- NOTE | 2023-09-01 08:34 | EXP.DC.SUM ---
General Admission date:: 08/30/23 Discharge date: 09/01/23 HPI HPI HPI: She is a 28-year-old 3 para 2 at 38 and 6 weeks gestational age. She had increased blood pressure my office last week. As result of that we elected to deliver her at term. Her blood pressure was 148/96 in my office. This was done twice. Hospital Course Hospital Course Hospital Course: She was started on IV oxytocin had her membranes ruptured. Under labor epidural progressed to full dilation and delivered spontaneously a liveborn male child at 1:52 PM in the afternoon of August 30, 2023. The baby was a liveborn male child weighing 7 pounds 14 ounces 20 inches long. He had Apgars of 7 at 1 minute and 9 at 5 minutes. It was noted that the baby also had a right clavicle fracture and I heard a crunch when the baby came underneath the pubic bone. I suspect that this was secondary to the size of the baby. Baby has done well subsequently. She has O+ blood, she is rubella immune and was group B streptococcus negative. Her senior cognos developer is Dr. Hay. She is discharged home to follow-up with me in approximately 2 weeks time. She will continue with her vitamins and iron. She was given the usual instructions with respect to limiting her activity, driving and sexual activity. Her condition on discharge is stable and improved. Exam Data for Last 24 hours Vital signs and Labs for Last 24 Hours: Temp Pulse Resp BP Pulse Ox O2 Del Method 98.3 F 82 20 124/81 95 Room Air 09/01/23 08:20 09/01/23 08:20 09/01/23 08:20 09/01/23 08:20 09/01/23 08:20 09/01/23 08:20 I & O for Last 24 hours: Intake & Output 08/29/23 08/30/23 08/31/23 09/01/23 11:59 11:59 11:59 11:59 Weight 196 lb Microbiology Reports for the Last 24 Hours: Microbiology 08/30/23 05:05 Urine,Clean Catch Urine Culture - Final Multiple organisms, suggests contamination. Constitutional Constitutional: no acute distress *Routine HEENT Exam Head: Present normocephalic *Routine Respiratory Exam Respiratory: Present normal respiratory effort; Absent accessory muscle use DS: Diagnosis Discharge Diagnosis (1) Normal delivery: Status: Acute Code(s): O80 - Encounter for full-term uncomplicated delivery (2) -induced hypertension in third trimester: Status: Acute Code(s): O13.3 - Gestational [-induced] hypertension without significant proteinuria, third trimester (3) Obesity affecting : Status: Acute Code(s): O99.210 - Obesity complicating , unspecified trimester Qualifiers: Trimester: third trimester Obesity type affecting : severe obesity due to excess calories Qualified Code(s): O99.213 - Obesity complicating , third trimester; E66.01 - Morbid (severe) obesity due to excess calories Meds Home Medications and Allergies Home Medications Medication Instructions Recorded Confirmed Type prenat.vits,indy,izo-xysa-fojcx 1 tab PO DAILY Supplement 01/19/23 08/30/23 History ondansetron 4 mg disintegrating 4 mg PO Q8H PRN nausea and 02/08/23 08/30/23 Rx tablet vomiting #60 tabs ferrous sulfate 325 mg (65 mg 325 mg PO DAILY iron supplement 08/30/23 08/30/23 History iron) tablet,delayed release sertraline 50 mg tablet (Zoloft) 50 mg PO DAILY Anxiety 08/30/23 08/30/23 History New Prescriptions to Start Prescriptions: Allergies Allergy/AdvReac Type Severity Reaction Status Date / Time No Known Allergies Allergy Verified 08/24/23 13:52 Discharge Plan Disposition Patient Disposition: Home, Self-Care Discharge Order Discharge Orders: Discharge Order (Routine); Ordered 09/01/23 Ordered By: Dipesh Farrell Follow up Plan Prescriptions/Medication Reconciliation: Continued prenat.vits,indy,[id number] Tablet 1 tab PO DAILY ondansetron 4 mg tablet,disintegrating 4 mg PO Q8H PRN (Re
== END 2023-09-01 09:45 | disposition home or self-care (01) | DRG 768 ==
PROVIDERS: Admitting Provider Nurse Practitioner Obstetrics & Gynecology; PCP Nurse Practitioner; Visit Provider Nurse Practitioner Obstetrics & Gynecology
DX: O13.4 Gestational [pregnancy-induced] hypertension without significant proteinuria, complicating childbirth (principal); Z37.0 Single live birth; O70.0 First degree perineal laceration during delivery; Z3A.38 38 weeks gestation of pregnancy
CPT/HCPCS: 59409; 36415; 59025; 80305; 81001; 85014; 85018; 85025; 86850; 87086; 94761; C1758; G0283; J2405

== ENCOUNTER → 2023-10-29 10:19 | Outpatient (CLI) | payer BC, MEDICAID, SELFPAY ==
[2023-10-29 10:48] LABS: Basophils % 0.4 % (0.1-2.0); Eosinophils # 0.2 K/mm3 (0.0-0.4); Eosinophils % 3.3 % (0.1-12.0); Hematocrit 36.9 % (37.0-47.0); Lymphocytes # 1.2 K/mm3 (0.7-4.5); Lymphocytes % 21.9 % (10-50); Mean Corpuscular HGB Conc 32.5 g/dL (31.8-35.4); Mean Corpuscular Hemoglobin 24.9 pg (27.0-31.2); Mean Corpuscular Volume 76.4 fl (81-99); Monocytes # 0.3 K/mm3 (0.1-1.0); Monocytes % 5.6 % (1.7-9.3); Neutrophils # 3.7 K/mm3 (1.8-7.8); Neutrophils % 68.7 % (37.0-80.0); Platelet Count 237 K/mm3 (142-424); Red Blood Count 4.83 M/mm3 (4.20-5.40); Red Cell Distribution Width 16.7 % (11.5-17.5); White Blood Count 5.4 K/mm3 (4.8-10.8)
[2023-10-29 11:52] LABS: Chloride 106 mmol/L (98-107); Potassium 4.2 mmoL/L (3.5-5.1); Sodium 139 mmol/L (136-145)
[2023-10-29 11:55] LABS: Alanine Aminotransferase 33 U/L (12-78); Albumin Level 4.3 g/dl (3.5-5.0); Albumin/Globulin Ratio 1.4 (1.1-1.8); Alkaline Phosphatase 108 U/L (38-126); Anion Gap 13.2 mEq/L (5-15); Aspartate Amino Transferase 32 U/L (14-36); Bilirubin,Total 0.3 mg/dl (0.2-1.3); Blood Urea Nitrogen 15 mg/dl (7-17); Calcium 8.9 mg/dl (8.4-10.2); Carbon Dioxide 24 mmol/L (22.0-30.0); Estimated Glomerular Filt Rate 99 ml/min (>60); GFR (African American) 120 ML/MIN (>60); Globulin 3.1 g/dL (1.3-3.2); Glucose 105 mg/dl (74-100); Total Protein,Serum 7.4 g/dl (6.3-8.2)
[2023-10-29 12:23] LABS: HCG,Quantitative < 2 mIU/ml (0-5.42)
== END ==
PROVIDERS: PCP Nurse Practitioner; Visit Provider Obstetrics & Gynecology
DX: Z01.812 Encounter for preprocedural laboratory examination (principal); Z30.09 Encounter for other general counseling and advice on contraception
CPT/HCPCS: 36415; 80053; 84702; 85025

== ENCOUNTER 2023-11-05 06:01 | Day surgery (SDC) | payer BC, MEDICAID, SELFPAY ==
[2023-11-03 12:59] VITALS: BMI 35.3
[2023-11-05] VITALS (9 sets, daily range): BP systolic 113–169; BP diastolic 68–100; PULSE 60–112; RESP 12–18; TEMP 36.5–36.7; O2SAT 95–98
--- NOTE | 2023-11-05 08:10 | P.PNANES_ITS ---
[facility] Disclaimer: The information contained in this section may have been updated after the patient was seen, as this information can be updated by other users. Medical History Abnormal electrocardiogram [ECG] [EKG] Anxiety Constipation Depressed Dilation of renal pelvis of fetus Dyspnea Edema of both lower extremities History of COVID-19 History of gastroesophageal reflux (GERD) Hypertension Kidney stone Positive D-dimer Supraventricular tachycardia during Urinary tract infection Surgical History Hx of wisdom tooth extraction Family History Other Diabetes FHx: mental illness Hypertension Thyroid disorder Social History (Updated 11/05/23 @ 06:27 by Joan Villarreal RN) Smoking Status: Never smoker alcohol intake: never substance use type: denies use current occupational status: employed Travel in the last 8 weeks: None [facility] Anesthesia Checklist Patient Identification Patient Identification: Verbal (Name & ) Structural Data Admitted From: Home Planned Operative Procedure/s: lap salpingectomy Consent for Planned Operative Procedure(s) Verified: Yes NPO Status Verified Time NPO: 00:00 Additional verifications Anesthesia Reactions: No Hx Blood Transfusions: No Blood Transfusion Reaction: No Airway Assessment Mallampati Score:: Class III C-Spine Mobility Assessed: Yes TMJ Mobility Assessed: Yes Dentition: Good Dentition Neurological Assessment Level of Consciousness: Awake, Alert and Appropriate Anesthesia Plan Anesthesia Risk discussed: Yes Anesthesia Plan: Verified ASA Class: II Anesthesia Type: General
--- NOTE | 2023-11-05 08:52 | EXP.OP.NOTE ---
Date of procedure: 11/05/23 Pre-op Diagnosis:: 1. Desires sterilization Post-op Diagnosis:: 1. Desires sterilization Procedure performed:: Laparoscopic bilateral salpingectomy Surgeon:: Rand Raimrez DO TECHNICIAN AUTOMATED EQUIPMENT:: João Steward Anesthesia: GETA Estimated blood loss (mL): 10 Operative findings:: 1. Bimanual examination revealed an anteverted 6-week size uterus with smooth contour without any adnexal masses. 2. Laparoscopic exam revealed normal-appearing uterus, ovaries, fallopian tubes and liver. 3. There were adhesions noted extending from the left colon to the left pelvic sidewall and a strand of adhesion extending from the omentum to the anterior abdominal wall at the umbilicus Operative note:: Marielena Brower is a 28-year-old G3, P3 who desires permanent sterilization. Risk and benefits were reviewed at length. We discussed LARCs and she desired to proceed with a permanent procedure. The patient was taken to the operating room where general anesthesia was obtained and noted to be adequate. SCDs were placed for thromboembolism prophylaxis and found to be working. The patient was placed in the dorsal lithotomy position using yellowfin stirrups. Timeout verified the correct patient and procedure. The patient was prepped and draped in a usual sterile fashion. A catheter was used to drain her bladder. An acorn uterine manipulator was placed and my top gloves were removed. 10mL of Lidocaine with epinepherine was injected infraumbilically and a scalpel was used to make a 5 mm infraumbilical incision with the assistance from a hemostat. The skin was tented and Optiview blunt trocar was introduced into the abdomen in the usual fashion. CO2 gas was connected with an initial pressure of 6 mmHg noted. Pneumoperitoneum was created to a pressure of 15 mmHg. The laparoscopic camera was inserted and a quick survey of the abdomen revealed grossly normal anatomy. The uterus appeared to be anteverted with a normal size shape and contour. The patient was placed in Trendelenburg. 10mLs of local anesthetic was injected and a 5mm incision was then made in the right lower quadrant with careful attention to avoid the rectus muscles and vasculature and under direct laparoscopic visualization a blunt trocar was introduced into the abdominal cavity. This process was repeated on the left side. The fallopian tubes were identified on the cornu of the uterus and followed out to the ovaries which revealed grossly appearing anatomy. A grasper was used to elevate the left fallopian tube. The Ligasure was used to grasp the fimbriated end of the fallopian tube, ensuring complete removal of the fimbriae, it was clamped, coagulated and transected. This process was repeated serially working towards the uterus to allow complete removal of the fallopian tube. Careful attention was given to transected the Mesosalpinx proximal to the fallopian tube. The fallopian tube was removed from the abdominal cavity and passed off the operative field to be sent to pathology. Hemostasis was noted. Attention was then turned to the right fallopian tube and the process was repeated. Hemostasis was noted and the tube was removed along with the trocar and handed off the operative field to be sent to pathology. Pneumoperitoneum reduced, and all ports removed. The 3 abdominal incisions were closed with a single simple interrupted suture using 4-0 Monocryl. Dermabond was applied to each skin incision. The [place] uterine manipulator was removed. All counts were correct x2, per nursing. The patient was extubated, stable, and transferred to the PACU. She will be discharged after meeting all DC criteria to include voiding, ambulating and tolerating PO independently. Condition: stable Disposition: same day Specimens:: Bilateral fallopian tubes Complications:: None
--- NOTE | 2023-11-05 08:54 | EXP.ANES.I ---
[facility] Anesthesia Record Part I Anesthesia Record I Intake, IV Amount: 1,500 Hydration: Adequate Estimated blood loss (mL): 0 Urine output (mL): 200 Blood Pressure: 140/100 SaO2: 98 Pulse Rate: 112 Airway Patency: Patent Respiratory Rate: 14 Temperature: 97.9 F Patient is:: Awake and Stable Stable to PACU at:: 08:52
--- NOTE | 2023-11-09 09:14 | P.PNANES_ITS ---
[facility] Anesthesia Record Part II Anesthesia Record Part II Discharge Time: 09:22 Destination: [facility] PACU nurse assessment reviewed?: Yes Patient Condition:: Good Anesthesia Complications:: None Swallowing reflex intact?: Yes Airway Patency: Patent Cyanosis?: No Blood Pressure: 128/83 SaO2: 96 Respiratory Rate: 18 Pulse Rate: 86 Temperature: 98.0 F Mental Status: Alert & Oriented Pain level:: 0 Nausea and/or vomitting:: None Intake, IV Amount: 1,200 Hydration: Adequate
[2023-11-09 09:15] VITALS: BP 128/83; PULSE 86; RESP 18; TEMP 36.7; O2SAT 96
--- NOTE | 2023-11-09 09:37 | P.PNANES_ITS ---
[facility] Anesthesia Record Part I Anesthesia Record I Intake, IV Amount: 500 Hydration: Adequate Estimated blood loss (mL): 0 Urine output (mL): 0 Blood Pressure: 99/56 SaO2: 99 Pulse Rate: 104 Airway Patency: Patent Respiratory Rate: 12 Temperature: 97 F Patient is:: Awake and Stable Stable to PACU at:: 09:35
[2023-11-09 09:38] VITALS: BP 99/56; PULSE 104; RESP 12; TEMP 36.1; O2SAT 99
== END 2023-11-05 10:05 | disposition home or self-care (01) ==
PROVIDERS: PCP Nurse Practitioner; Visit Provider Obstetrics & Gynecology
PROC: (CPT 58661; principal; 2023-11-05 07:30)
DX: Z30.2 Encounter for sterilization (principal); N73.6 Female pelvic peritoneal adhesions (postinfective)
CPT/HCPCS: 58661; J2405; J2710

== ENCOUNTER 2025-07-31 09:10 | Outpatient (CLI) | payer BC, SELFPAY ==
--- OUTSIDE RECORDS SUMMARY | 2025-07-11 14:00 | XMS_ITS | Encounter Summary ---
Author Organization [place] [address] Care Team Providers Care Pattern Repair Person Name Role Phone Unavailable Primary Care Provider Unavailabl e Reason for Referral * Biopsy Procedure (Routine) - Authorization Not Needed Specialty Diagnoses / Procedures Referred By Contac t Referred To Contact Dermatology Diagnoses AK (actinic keratosis) Procedures AL DESTRUCTION PREMALIGNANT LESION 1ST Lance Ramos MD [address] [place] [address] Phone: tel: fax: Lance Ramos MD [address] [place] [address] Phone: tel: fax: Referral ID Status Reason Start Date Expiration Date Visits Requested Visits Authorized [id number] Authorization Not Needed 07/11/2025 07/11/2026 1 1 Reason for Visit * Reason Comments New Patient * Biopsy Procedure (Routine) - Authorization Not Needed Specialty Diagnoses / Procedures Referred By Contac t Referred To Contact Dermatology Diagnoses AK (actinic keratosis) Procedures AL DESTRUCTION PREMALIGNANT LESION 1ST Lance Ramos MD [address] [place] [address] Phone: tel: fax: Lance Ramos MD [address] [place] [address] Phone: tel: fax: Referral ID Status Reason Start Date Expiration Date Visits Requested Visits Authorized [id number] Authorization Not Needed 07/11/2025 07/11/2026 1 1 Encounter Details Date Type Department Care Team (Late st Contact Info) Description 07/11/2025 2:00 PM EDT Office Visit SEP Dermatology [facility] [address] [facility] [address] [place] [id number] Lance Ramos MD [address] [place] [address] Encounter for screening for malignant neoplasm of [...] of crusting, scabbing, blistering, scarring, darker or cover seamer pigmentary change, recurrence, incomplete removal and infection. [...] (this is the SPF but for clothing) [employer] - wear sun protective clothing (clothing with UV protection factor, also called UPF) Options include [employer] and [place], though you can find this on LetsWombat too. I recommend that you perform skin [...] Type Priority Associated Diagnoses Orde r Schedule AL TANGENTIAL BIOPSY SKIN SINGLE LESION AL Charge Routine Neoplasm of unspecified behavior of bone, soft tissue, and skin Ordered: 07/11/2025 AL DESTRUCTION PREMALIGNANT LESION 1ST AL Charge Routine AK (actinic keratosis) Ordered: 07/11/2025 [...] Ramos MD PATHOLOGY ORDERABLES Final Res ult [facility] DERMATOPATHOLOGY [address] [place] [address] documented in this encounter Visit Diagnoses Diagnosis Encounter for screening for malignant neoplasm of skin- Primary Screening for malignant neoplasm of the skin Multiple benign melanocytic nevi Lentigines Other dyschromia AK (actinic keratosis) Actinic keratosis Neoplasm of unspecified behavior of bone, soft tissue, and skin Gilmore angioma Nevus, non-neoplastic documented in this encounter
[2025-07-31 15:06] LABS: Albumin Level 4.3 g/dl (3.5-5.0); Chloride 108 mmol/L (98-107); Potassium 4.5 mmoL/L (3.5-5.1); Sodium 139 mmol/L (136-145)
[2025-07-31 15:08] LABS: Anion Gap 11.5 mEq/L (5-15); Blood Urea Nitrogen 14 mg/dl (7-17); Carbon Dioxide 24 mmol/L (22.0-30.0); Creatinine,Serum 0.50 mg/dl (0.52-1.04); Estimated Glomerular Filt Rate 144 ml/min (>60); GFR (African American) 174 ML/MIN (>60)
[2025-07-31 15:09] LABS: Alanine Aminotransferase 20 U/L (12-78); Albumin/Globulin Ratio 1.3 (1.1-1.8); Alkaline Phosphatase 74 U/L (38-126); Aspartate Amino Transferase 27 U/L (14-36); Bilirubin,Total 0.3 mg/dl (0.2-1.3); Calcium 9.5 mg/dl (8.4-10.2); Cholesterol 129 mg/dl (140-200); Globulin 3.3 g/dL (1.3-3.2); Glucose 98 mg/dl (74-100); HDL Cholesterol 44 mg/dl (40-60); Total Protein,Serum 7.6 g/dl (6.3-8.2); Triglycerides 51 mg/dl (30-150)
[2025-07-31 15:37] LABS: Hematocrit 41.4 % (37.0-47.0); Hemoglobin 12.7 g/dL (12.2-16.2); Immature Granulocytes % 0.2 %; Mean Corpuscular HGB Conc 30.7 g/dL (31.8-35.4); Mean Corpuscular Hemoglobin 23.7 pg (27.0-31.2); Mean Corpuscular Volume 77.4 fl (81-99); Nucleated Red Blood Cells % 0 %; Platelet Count 241 K/mm3 (142-424); Red Blood Count 5.35 M/mm3 (4.20-5.40); Red Cell Distribution Width-SD 45.4 fL; White Blood Count 4.7 K/mm3 (4.8-10.8)
[2025-07-31 15:39] LABS: Thyroid Stimulating Hormone 1.24 uIU/mL (0.465-4.68)
[2025-07-31 15:58] LABS: Vitamin B12 755 pg/mL (239-931)
[2025-07-31 15:59] LABS: Hepatitis C Ab Qual. W/ RFX NEGATIVE (Negative)
[2025-08-02 09:43] LABS: Hepatitis B Surface Antigen Negative (Negative)
--- OUTSIDE RECORDS SUMMARY | 2025-08-02 13:03 | XMS_ITS | Encounter Summary ---
Author Organization [place] [address] Care Team Providers Care Marble Installation Helper Name Role Phone Unavailable Primary Care Provider Unavailabl e Encounter Details Date Type Department Care Team (Late st Contact Info) Description 07/16/2025 Results Follow-Up SEP Dermatology [facility] [address] [facility] [address] [place] [address] Lance Ramos MD [address] [place] [address] DERMATOPATHOLOGY TISSUE SEND OUT REQUEST Social History Tobacco Use Types Packs/Day Years [...] on file documented as of this encounter Plan of Treatment Not on file documented as of this encounter Goals Goal Patient Goal Type Associated Problems Recent Progress Patient-Stated? Author Maintain a healthy diet, exercise regularly and maintain an ideal body weight General No Joan Mendes MD documented as of this encounter Visit Diagnoses Not on filedocumented in this encounter
--- OUTSIDE RECORDS SUMMARY | 2025-08-02 13:03 | XMS_ITS | Clinical Summary ---
[facility] Address [address] [place] [address] Care Team Providers Care Deputy Chief Counsel Name Role Phone Provider, No Known Primary Care Provider Unavail able Allergies No known active allergies Medications sulfamethoxazole -trimethoprim (BACTRIM DS,SEPTRA DS) 800-160 MG per tablet Take 1 tablet by mouth 2 (Two) Times a Day. Active Family History Medical History Relation Name Comments Diabetes Maternal Grandmother Obesity Maternal Grandmother Relation Name Status Comments Maternal Grandmother Social History Tobacco Use Types Packs/Day Years Used Date Smoking Tobacco: Never Alcohol Use Standard Drinks/Week Comments No 0 (1 standard drink = 0.6 oz pur e alcohol) Abuse Screen Answer Date Recorded Unsafe at Home or Work/School Not on file Feels Threatened by Someone? Not on file 09/2023 Does Anyone Keep You from Co ntacting Others or Doint Things Outside the Home? Not on file 09/08/2023 Physical Sign of Abuse Present Not on file 1 Housing Stability Answer Date Recorded Current Living Arrangements Not on file 08/29 Potentially Unsafe Housing Conditions Not on dean e 09/08/2023 Family and Community Support Answer Wilfredo e Recorded Help with Day-to-Day Activities Not on file 09/08/2023 Lonely or Isolated Not on file 09/08/2023 Employment Answer Date Recorded Do you want help finding or keeping work or a giovanna b? Not on file 09/08/2023 Disabilities Answer Date Recorded Concentrating, Remembering, or Making Decisions Difficulty Not on file 09/08/2023 Doing Errands Independently Difficulty Not on fi le 09/08/2023 Education Answer Date Recorded Help with school or training? Not on file Preferred Language Not on file 09/08/2023 Comments Unknown Sex and Gender Information Value Date Recorded Sex Assigned at Not on file Legal Sex Female 12:41 PM EST Gender Identity Not on file Sexual Orientation Not on file Last Filed Vital Signs Vital Sign Reading Time Taken Comments Blood Pressure 90/58 01/09/2017 12:59 PM EST Pulse 148 01/09/2017 12:59 PM EST Temperature 38.3 C (100.9 F) 01/09/2017 12:59 PM EST Respiratory Rate - - Oxygen Saturation 98% 01/09/2017 12:59 PM EST Inhaled Oxygen Concentration - - Weight - - Height - - Body Mass Index - - Plan of Treatment Health Maintenance Due Date Last Done Comments ANNUAL PHYSICAL 1994 Annual Gynecologic Pelvic an d Breast Exam 1994 HEPATITIS C SCREENING 1994 TDAP/TD VACCINES (1 - Tdap) 2013 COVID-19 Vaccine (2023-2 5 season) 2024 INFLUENZA VACCINE 08/29/2025 Pneumococcal Vaccine 0-49 Aged Out No longer eligible based on patient's age to complete this topic Insurance SOURCE Care Teams Deputy Chief Counsel Relationship Specialty Start Date End Date Provider, No Known [facility] [place] [address] PCP - General 01/09/17
--- OUTSIDE RECORDS SUMMARY | 2025-08-02 13:03 | XMS_ITS | Clinical Summary ---
Author Organization [facility] Call Center Address [address] [facility] [address] [place] [address] Phone Care Team Providers Care 3Rd Pressman Name Role Phone Unavailable Primary Care Provider Unavailabl e Allergies No known active allergies Medications sertraline (ZOLOFT) 50 mg Oral Tablet Take 50 mg by mouth daily. Active mupirocin (BACTROBAN) 2 % Top OintmentIndicati ons:Neoplasm of unspecified behavior of bone, soft tissue, and skin Apply BID to the affected area on the left chin until healed. 22 g Active Active Problems Problem Noted Date Diagnosed Date Generalized anxiety disorder 10/21/2020 Encounters Date Type Department Care Team Description 07/16/2025 Results Follow-Up [facility] Dermatology [address] [address] Lance Ramos MD DERMATOPATHOLOGY TISSUE SEND OUT REQUEST 07/11/2025 2:00 PM EDT Office Visit [facility] Dermatology [address] [address] Lance Ramos MD Encounter for screening for malignant neoplasm of skin (Primary Dx); Multiple benign melanocytic nevi; Lentigines; AK (actinic keratosis); Neoplasm of unspecified behavior of bone, soft tissue, and skin; Gilmore angioma from Last 3 Months Immunizations Immunization Administration Dates Next Due Influenza Vaccine Quadrivalent 08/29/2020 Family History Medical History Relation Name Comments No Known Problems Brother 1 full No Known Problems Brother 2 half No Known Problems Brother 3 half Anxiety Disorder Father High Blood Pressure Father No Known Problems Maternal Grandfather Cancer Maternal Grandmother brain? Dementia Maternal Grandmother No Known Problems Mother Diabetes Paternal Grandfather High Blood Pressure Paternal Grandfather Diabetes Paternal Grandmother High Blood Pressure Paternal Grandmother Relation Name Status Comments Brother 1 full Alive Brother 2 half Alive Brother 3 half Alive Father Maternal Grandfather Maternal Grandmother Mother Paternal Grandfather Paternal Grandmother Social History Tobacco Use Types Packs/Day Years Used Date Smoking Tobacco: Never Smokeless Tobacco: Never Tobacco Cessation:Counseling Given: Yes Alcohol Use Standard Drinks/Week Comments Not Currently 0 (1 standard drink = 0.6 oz pur e alcohol) Sexually Active Control Partners Comments Yes Male Comments No Sex and Gender Information Value Date Recorded Sex Assigned at Not on file Legal Sex Female 8:43 AM EST Gender Identity Not on file Sexual Orientation Not on file Obstetrics History Para Term AB IAB SAB Ectopic Multiple Livin g Live Births 2 2 2 Date Outcome GA Total Labor Labor/2nd/3rd Weight Sex Type Anes PTL Chichi A1 A5 Name Clin Term Vag-Spo nt Term Vag-Spo nt Plan of Treatment Health Maintenance Due Date Last Done Comments Annual Wellness Exam 1997 Hepatitis B Vaccine (1 of 3 - 19+ 3-dose series) 2013 Cervical Cancer Screening 2015 Pap Smear 2015 HPV/Pap Cotest 2024 COVID-19 Vaccine (2024-2 6 season) 2025 09/26/2021, 01/08/2021, 12/11/2020 Influenza Vaccine (#1) 2025 08/29/2020 DTaP/TDaP/Td (2 - Td or Tdap) 02/27/2029 02/27/2019 Meningococcal B Vaccine Aged Out No l onger eligible based on patient's age to complete this topic Pneumococcal Vaccine 0-49 Aged Out No longer eligible based on patient's age to complete this topic Goals Goal Patient Goal Type Associated Problems Recent Progress Patient-Stated? Author Maintain a healthy diet, exercise regularly and maintain an ideal body weight General No Joan Mendes MD Procedures Procedure Name Priority Date/Time Associated Diagnosis Comments DERMATOPATHOLOGY TISSUE SEND OUT REQUEST Routine 07/16/2025 5:11 PM EDT Neoplasm of unspecified behavior of bone, soft tissue, and skin from Last 3 Months Results * DERMATOPATHOLOGY TISSUE SEND OUT REQUEST (07/16/2025 5:11 PM EDT) Tissue us Lance Ramos MD PATHOLOGY ORDERABLES Final Res ult [facility] DERMATOPATHOLOGY [address] [place] [address] from Last [address] [place] [address] [place] [address] PPO
== END 2025-07-31 23:59 | disposition home or self-care (01) ==
LOC: LAB.DROPOF 08-02 12:58
PROVIDERS: PCP Nurse Practitioner; Visit Provider Nurse Practitioner
DX: O16.5 Unspecified maternal hypertension, complicating the puerperium (principal); F41.8 Other specified anxiety disorders; E66.9 Obesity, unspecified; Z11.59 Encounter for screening for other viral diseases; Z86.39 Personal history of other endocrine, nutritional and metabolic disease
CPT/HCPCS: 80053; 80061; 82607; 84443; 85025; 86803; 87340; 87389

== ENCOUNTER 2025-08-06 10:16 | Emergency (ER) | payer BC, SELFPAY ==
--- OUTSIDE RECORDS SUMMARY | 2025-07-11 14:00 | XMS_ITS | Encounter Summary ---
Author Organization [place] [address] Care Team Providers Care Scarfer Operator Name Role Phone Unavailable Primary Care Provider Unavailabl e Reason for Referral * Biopsy Procedure (Routine) - Authorization Not Needed Specialty Diagnoses / Procedures Referred By Contac t Referred To Contact Dermatology Diagnoses AK (actinic keratosis) Procedures AR DESTRUCTION PREMALIGNANT LESION 1ST Lance Ramos MD [address] [place] [address] Phone: tel: fax: Lance Ramos MD [address] [place] [address] Phone: tel: fax: Referral ID Status Reason Start Date Expiration Date Visits Requested Visits Authorized [id number] Authorization Not Needed 07/11/2025 07/11/2026 1 1 Reason for Visit * Reason Comments New Patient * Biopsy Procedure (Routine) - Authorization Not Needed Specialty Diagnoses / Procedures Referred By Contac t Referred To Contact Dermatology Diagnoses AK (actinic keratosis) Procedures AR DESTRUCTION PREMALIGNANT LESION 1ST Lance Ramos MD [address] [place] [address] Phone: tel: fax: Lance Ramos MD [address] [place] [address] Phone: tel: fax: Referral ID Status Reason Start Date Expiration Date Visits Requested Visits Authorized [id number] Authorization Not Needed 07/11/2025 07/11/2026 1 1 Encounter Details Date Type Department Care Team (Late st Contact Info) Description 07/11/2025 2:00 PM EDT Office Visit SEP Dermatology [facility] [address] [facility] [address] [place] [id number] Lance Ramos MD [address] [place] [address] Encounter for screening for malignant neoplasm of skin (Primary Dx); Multiple benign melanocytic nevi; Lentigines; AK (actinic keratosis); Neoplasm of unspecified behavior of bone, soft tissue, and skin; Gilmore angioma Social History Tobacco Use Types Packs/Day Years Used Date Smoking Tobacco: Never Smokeless Tobacco: Never Alcohol Use Standard Drinks/Week Comments Not Currently 0 (1 standard drink = 0.6 oz pur e alcohol) Sexually Active Control Partners Comments Yes Male Comments No Sex and Gender Information Value Date Recorded Sex Assigned at Not on file Legal Sex Female 8:43 AM EST Gender Identity Not on file Sexual Orientation Not on file documented as of this encounter Ordered Prescriptions Prescription Sig Dispense Quantity Refills Last Filled Start Date End Date mupirocin (BACTROBAN) 2 % Top OintmentIndication s:Neoplasm of unspecified behavior of bone, soft tissue, and skin Apply BID to the affected area on the left chin until healed. 22 g 07/11/2025 documented in this encounter Progress Notes * Lance Ramos MD - 07/11/2025 2:00 PM EDT HPI: Marielena is a 30 y.o. female that complains of an enlarging, bleeding lesion on the left chin for a few years. No prior tx. Complaint of a scaly lesion on the forehead for several months. No prior tx. She requests a full skin exam. Dermatology Past History: Personal History of Skin Cancer/Melanoma: No Sunburns Easily: Yes Uses Sunscreen: Yes Social History reviewed with patient and no pertinent negatives at this time. Past Medical History: History reviewed. No pertinent past medical history. Surgical History: History reviewed. No pertinent surgical history. Social History: Social History Tobacco Use Smoking status: Never Smokeless tobacco: Never Substance Use Topics Alcohol use: Not Currently Drug use: Never Family History: Family History Problem Relation Age of Onset No Known Problems Mother Anxiety Disorder Father High Blood Pressure Father No Known Problems Brother Cancer Maternal Grandmother brain? Dementia Maternal Grandmother No Known Problems Maternal Grandfather Diabetes Paternal Grandmother High Blood Pressure Paternal Grandmother Diabetes Paternal Grandfather High Blood Pressure Paternal Grandfather No Known Problems Brother No Known Problems Brother Allergies: No Known Allergies Current Medications: Current Outpatient Medications Medication sertraline (ZOLOFT) 50 mg Oral Tablet No current facility-administered medications for this visit. Review of Systems: No other reported skin problems. Constitutional: no reported Fever, chills or unintended weight loss Eyes: no reported dry eyes/Sjogren's Ears/Nose/mouth/throat: no reported oral sores, no reported dry mouth C/V: no reported chest pain Resp: no reported SOB GI: no reported abd pain, no reported N/V : no reported pain with urination, no reported blood in urine M/S: no reported joint complaints, no reported arthralgias, no reported muscle weakness, no reported trouble brushing hair/standing up from seated position Neuro: no reported seizures, no reported GALVIN's Psych: no reported change in mood Endo: no reported weight gain/loss Heme/lymph: no reported easy bruising, no reported swollen glands/lymph nodes. No reported hx of clotting. Allergic/Immunologic: no reported symptoms of allergy No reported Raynaud symptoms Physical Exam: There were no vitals filed for this visit. General: WDWN: Normal Mood/Affect: Normal Orientation: Normal Examination of the following was performed and was normal, except as noted below: Psych/neuro, Scalp/hair, head/face, conjunctivae/eyelids, lips, Neck, axilla/chest, abdomen, back, right upper extremity, left upper extremity, Nails/digits, right lower extremity, left lower extremity, buttocks, peripheral vascular declined exam genitalia/groin/breasts Assessment and Plan: Benign Nevi : regular, symmetrical, evenly-colored macules and papules located on the body throughout Plan: Counseling I counseled the patient regarding the following: Instructions: Monthly self-skin checks to monitor for any changes in moles are recommended. Reviewed ABCDE and Ugly Duckling warning signs and recommended evaluation if any moles change in size, shape or color; itch, burn or bleed. Recommended daily OTC sunscreen at least SPF 30 with reapplication and photoprotection measures Expectations: Benign Nevi are pigmented nests of cells within the skin. No treatment is necessary. Contact Office if: Any moles change in size, shape or color; itch, burn or bleed. Lentigines: reticulated light gallardo macules in sun distribution Plan: Counseling I counseled the patient regarding the following: Skin Care: Lentigines can resolve with broad spectrum sunscreen, sun avoidance, bleaching creams, retinoids, chemical peels and laser. Expectations: Lentigines are benign pigmented lesions that occur on sun-exposed and sun-damaged skin. They are easily treatable. Gilmore Angiomas : bright gilmore-red papules located on the body throughout Plan: Counseling I counseled the patient regarding the following: Skin Care: Gilmore Angiomas can resolve with lasers or electrodesiccation. Expectations: Gilmore Angiomas are benign vascular growths. No treatment is necessary. Actinic Keratosis : hypertrophic erythematous papule with hyperkeratotic scale located on the Forehead x1, Plan: Counseling I counseled the patient regarding the following: Skin Care: Sun protective clothing and broad spectrum sunscreen can prevent the formation of Actinic Keratoses. AKs can resolve with cryotherapy, photodynamic therapy, imiquimod, topical 5-FU. Expectations: Actinic Keratoses are precancerous proliferations that occur within sun damaged skin.If untreated, a small subset of AKs can develop into Squamous Cell Carcinoma. Contact Office if: If AKs fail to resolve despite treatment, or if you develop a side effect from therapy, such as unbearable crusting, scabbing, redness and tenderness. Educated on appropriate use of sunscreen and sun avoidance measures. Plan: Liquid Nitrogen Body Location(s): Forehead x1, Procedure Note: A total of 1 lesions were treated with liquid nitrogen for 2 freeze-thaw cycles lasting 5 seconds. The patient's consent was obtained including but not limited to risks of crusting, scabbing, blistering, scarring, darker or plumbing and heating contractor pigmentary change, recurrence, incomplete removal and infection. I reviewed with the patient in detail post-care instructions. Patient is to wear sunprotection, and avoid picking at any of the treated lesions. Pt may apply Vaseline to crusted or scabbing areas. Neoplasm of Uncertain Behavior, left chin, eroded skin colored papule R/o Traumatized Nevus vs Atypical Nevus vs eroded angiofibroma -Shave biopsy on Left Chin -Informed consent obtained -Area marked, cleaned, anesthetized with lidocaine 1% with epinephrine 1:100,000 -Shave biopsy performed -Hemostasis obtained with aluminum chloride -Polysporin ointment and bandage applied -Specimen(s) sent to pathology lab -Edu: woundcare, bleeding, infection, scar Follow Up: Return in about 1 year (around 07/11/2026). documented in this encounter Miscellaneous Notes * Patient Instructions - Shefali Smith RMA - 07/11/2025 2:00 PM EDT Images from the original note were not included. If you had a biopsy today, I recommend the following for wound care: I recommend leaving the bandage in place and avoiding showering/baths for 24 hours. Thereafter, recommend washing sites with water and soap daily and applying vaseline liberally (at least once daily)to optimize healing. We recommend AGAINST topical antibiotics like neosporin and triple antibiotic,as these can cause skin allergy and rash, which makes healing more difficult. We will call you withthe results. If you had spots frozen (treated with cryotherapy) today, I recommend daily application of vaselineto areas to help the healing process. To help prevent skin cancer and prevent again of your skin, I strongly recommend the following: - that you stay out of sun, particularly from 10 am to 2 pm - wear broad spectrum sunscreen with SPF30 or above (look for sunscreens with zinc oxide, titanium dioxide in them) - If you're using a lotion version: apply 2 tablespoons to entire body to ensure thick enough layer When outside for prolonged periods, re-apply sunscreen every 2-3 hours Specific sunscreens that we love: Neutrogena Pure and Free Baby, Blue Lizard or Cerave stick sunscreens, Eucerin sensitive skin sunscreen, vanicream sunscreen, EltaMD (can order this on amazon) - wear a broad-rimmed hat, even one that has UPF in it (this is the SPF but for clothing) [employer] - wear sun protective clothing (clothing with UV protection factor, also called UPF) Options include [employer] and [place], though you can find this on Skypaz too. I recommend that you perform skin exams once a month What should you watch for? Things that are bleeding, hurting, not healing, or moles that are changing. When it comes to your moles, please pay special attention to the ABCDEs (as illustrated below; reproduced from the Melanoma [employer]). Melanoma is most common on the back and the back of the legs, so please make sure to recruit help to look at these areas. Melanoma sometimes comes from an old mole, but it's sometimes a new spot. If you're ever worried about anything, please contact me. Also, if you have a history of skin cancer (particularly melanoma), I recommend that you take a feel of your scars from prior melanoma excision once monthly. Please call us and let us know if you notice any new or changing lesions or if you feel any new bumps within scars from prior skin cancer surgeries (we will get you in to have lesions evaluated further). A - Asymmetrical shape - One half of the lesion does not match the other half. B - Border -- The edges are ragged, notched, irregular, or blurred C- Color - The color is not the same throughout or it has shades of gallardo, brown, black, red, white, or blue. D - Diameter - The mole is greater than 6 millimeters in size, about the size of a pencil eraser. E - Evolving - lesions that are evolving or changing documented in this encounter Plan of Treatment Scheduled Orders Name Type Priority Associated Diagnoses Orde r Schedule AR TANGENTIAL BIOPSY SKIN SINGLE LESION AR Charge Routine Neoplasm of unspecified behavior of bone, soft tissue, and skin Ordered: 07/11/2025 AR DESTRUCTION PREMALIGNANT LESION 1ST AR Charge Routine AK (actinic keratosis) Ordered: 07/11/2025 documented as of this encounter Goals Goal Patient Goal Type Associated Problems Recent Progress Patient-Stated? Author Maintain a healthy diet, exercise regularly and maintain an ideal body weight General No Joan Mendes MD documented as of this encounter Procedures Procedure Name Priority Date/Time Associated Diagnosis Comments DERMATOPATHOLOGY TISSUE SEND OUT REQUEST Routine 07/16/2025 5:11 PM EDT Neoplasm of unspecified behavior of bone, soft tissue, and skin documented in this encounter Results * DERMATOPATHOLOGY TISSUE SEND OUT REQUEST (07/16/2025 5:11 PM EDT) Tissue us Lance Ramos MD PATHOLOGY ORDERABLES Final Res ult [facility] DERMATOPATHOLOGY [address] [facility] [place] [address] documented in this encounter Visit Diagnoses Diagnosis Encounter for screening for malignant neoplasm of skin- Primary Screening for malignant neoplasm of the skin Multiple benign melanocytic nevi Lentigines Other dyschromia AK (actinic keratosis) Actinic keratosis Neoplasm of unspecified behavior of bone, soft tissue, and skin Gilmore angioma Nevus, non-neoplastic documented in this encounter
[2025-08-06] VITALS (7 sets, daily range): BP systolic 113–154; BP diastolic 67–92; PULSE 66–90; RESP 15–17; TEMP 36.8–37.1; O2SAT 94–99; BMI 37.0
--- OUTSIDE RECORDS SUMMARY | 2025-08-06 10:21 | XMS_ITS | Clinical Summary ---
[facility] Organization [facility] Address [address] [place] [address] Care Team Providers Care Bull Driver Name Role Phone Provider, No Known Primary [...] Tdap) 2013 COVID-19 Vaccine (2023-2 5 season) 2025 INFLUENZA VACCINE 08/29/2025 Pneumococcal Vaccine 0-49 Aged Out No longer eligible based on patient's age to complete this topic Insurance S[employer] Care Teams Bull Driver Relationship Specialty Start Date End Date Provider, No Known [facility] [place] [address] PCP - General 01/09/17
--- OUTSIDE RECORDS SUMMARY | 2025-08-06 10:21 | XMS_ITS | Encounter Summary ---
Author Organization [facility] [place] [address] Care Team Providers Care Medical Housekeeper Name Role Phone Unavailable Primary Care Provider Unavailabl e Encounter Details Date Type Department Care Team (Late st Contact Info) Description 07/16/2025 Results Follow-Up [facility] [address] [facility] [address] [place] [address] Lance Ramos MD [address] [place] [address] DERMATOPATHOLOGY TISSUE SEND OUT REQUEST Social History [...]
--- OUTSIDE RECORDS SUMMARY | 2025-08-06 10:21 | XMS_ITS | Clinical Summary ---
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[employer] Name Role Phone Unavailable Primary Care Provider [...] Department Care Team Description 07/16/2025 Results Follow-Up [facility] Dermatology [address] [address] Lance Ramos MD DERMATOPATHOLOGY TISSUE SEND OUT REQUEST 07/11/2025 2:00 PM EDT Office Visit [facility] Dermatology [address] [address] Lance Ramos MD Encounter for screening for [...] Ramos MD PATHOLOGY ORDERABLES Final Res ult [facility] DERMAT[facility]Y [address] [facility] [place] [address] from Last [address] [place] [address] [place] [place] [address] PPO
--- NOTE | 2025-08-06 10:36 | CT_ITS ---
FINAL REPORT TECHNIQUE: Thin section axial images are obtained through the abdomen and pelvis after intravenous contrast. Reconstruction images were obtained from the axial data. Exam was performed using dose reduction techniques. CLINICAL HISTORY: RLQ pain, N/V FINDINGS: LUNG BASES: Lung bases are clear. Heart size is normal. LIVER: Homogeneous. No focal lesion. GALLBLADDER/BILIARY SYSTEM: Gallbladder is present. No gallstones. No biliary dilatation. SPLEEN: Unremarkable. PANCREAS: Unremarkable. ADRENALS: Unremarkable. KIDNEYS/URETERS/BLADDER: No hydronephrosis, renal mass, or renal stone. Unremarkable urinary bladder. GI TRACT: No small bowel obstruction or dilatation. Normal appendix. There are fluid-filled, thick-walled small bowel loops in the lower abdomen and pelvis including the terminal ileum, favor infectious or inflammatory enteritis. Remaining GI tract is without acute abnormality. PELVIC ORGANS: Unremarkable for age. LYMPH NODES/RETROPERITONEUM/MESENTERY: No lymphadenopathy. No abdominal aortic aneurysm. ABDOMINAL WALL: The abdominal wall is intact. FREE FLUID: No ascites. BONES: No acute osseous abnormality. IMPRESSION: Fluid-filled, thick-walled distal small bowel loops including the terminal ileum most suspicious of infectious/inflammatory enteritis. Chron's disease within the differential diagnosis. Reviewed, Interpreted and Dictated by Leatha Gilliam MD Transcribed by Daisy Hanna Authenticated and . [facility]
--- NOTE | 2025-08-06 10:39 | ED_ITS ---
Discharge Plan Disposition Patient Disposition: Home, Self-Care Prescriptions Prescriptions: New ondansetron 4 mg tablet,disintegrating 4 mg PO Q6H PRN (Reason: nausea and vomiting) Qty: 16 0RF No Action sertraline 100 mg tablet 100 mg PO DAILY Qty: 90 3RF buspirone 10 mg tablet 10 mg PO BID PRN (Reason: mood) Qty: 60 2RF ondansetron HCl 4 mg tablet 4 mg PO Q8H PRN (Reason: nausea and vomiting) Qty: 20 0RF hyoscyamine sulfate 0.125 mg tablet 0.125 mg PO QID PRN (Reason: diarrhea or abdominal cramping) Qty: 30 0RF Referrals Follow up/Referrals: Malathi Garrison APRN [Primary Care Provider, Family Practice] - See instructions Activity Restrictions/Add. Instructions Additional Instructions/Restrictions: Your CT scan showed inflammation of the intestinal tract, likely from an infectious source. We will call you with the results of your stool studies. If you need antibiotics or any medications, we will let you know. It is very important that you continue to hydrate at home by drinking plenty of water, sugar-free Gatorade and Pedialyte. I am prescribing Zofran to help with nausea and vomiting. If you develop any new or worsening symptoms, such as being unable to keep any food or liquid down, concerns for dehydration, worsening abdominal pain, or if you become concerned for your health for any reason, return to the emergency department for evaluation. Clinical Impressions Clinical Impression: Nausea vomiting and diarrhea, Enteritis Instructions Patient Instructions: DI for Acute Abdominal Pain Print Language Print Language: Citizen Of [place] Discharge ED Provider: Roman Maldonado Adult HPI General Chief complaint: Abdominal Pain Stated complaint: abd pain, vomiting, diarrhea Time Seen by Provider: 08/06/25 10:20 Mode of Arrival: Ambulatory Source of Information: Patient Description of Symptoms (Recalled from ER Triage Doc. by RN): patient states she began having sharp RLQ pain that is intermittent and radaiting to under her left breast with nausea vomiting and diarrhea. 09/07 pain History of Present Illness HPI narrative: Marielena Brower is a 30F with a history of tubal ligation, hypertension anxiety, depression who presents to the emergency department for complaints of nausea, vomiting and diarrhea. Patient states that she was woken at 2 AM with Was episodes of nonbloody diarrhea as well as approximately 10 episodes of nonbloody nonbilious vomiting. She states that she is also having right upper and epigastric abdominal pain associated with this. She thinks she might have a stomach bug she denies any chest pain or shortness of breath. She denies any fevers. She denies any dysuria or hematuria. Related Data Previous Rx's ?Medication ?Instructions ?Recorded buspirone 10 mg tablet 10 mg PO BID PRN mood #60 ta bs 07/31/25 sertraline 100 mg tablet 100 mg PO DAILY #90 tabs 01/23 hyoscyamine sulfate 0.125 mg tablet 0.125 mg PO QID SD N diarrhea or 08/06/25 abdominal cramping #30 tabs ondansetron 4 mg disintegrating 4 mg PO Q6H PRN nausea and 08/06/25 tablet vomiting #16 tabs ondansetron HCl 4 mg tablet 4 mg PO Q8H PRN nausea and 08/06/25 vomiting #20 tabs Allergies Allergy/AdvReac Type Severity Reaction Status Date / Time No Known Allergies Allergy Verified 07/31/25 08:30 [facility] Disclaimer: The information contained in this section may have been updated after the patient was seen, as this information can be updated by other users. Medical History (Updated 08/06/25 @ 12:44 by Roman Maldonado MD) Obesity Depression with anxiety Urinary tract infection Kidney stone History of COVID-19 History of gastroesophageal reflux (GERD) Hypertension Positive D-dimer Dilation of renal pelvis of fetus Edema of both lower extremities Abnormal electrocardiogram [ECG] [EKG] Dyspnea Supraventricular tachycardia during Constipation Anxiety Depressed Surgical History History of bilateral salpingectomy Hx of wisdom tooth extraction Family History Other Diabetes FHx: mental illness Hypertension Thyroid disorder Social History Smoking Status: Never smoker alcohol intake: never substance use type: denies use current occupational status: employed Travel in the last 8 weeks?: None Have you lived/traveled outside US in past 30 days?: No Contact w/someone who lives/traveled outside US past 30 days?: No Exposure to someone with infectious disease in past 14 days?: No Do you have a fever (greater than 100.4 F or 38 C)?: No Have you tested positive for COVID-19?: No Exposed to someone with COVID-19 in past 14 days?: No Do you have a sore throat?: No Do you have a cough?: No Do you have any weakness?: No Do you have any diarrhea?: No Are you experiencing any unusual bleeding?: No Do you have any muscle aches/pain?: No Do you have any abdominal pain?: No Are you experiencing loss of taste or smell?: No Other Medical History Have you received the Flu Vaccine for this season: No Have you received the Pneumonia Vaccine: No ROS Obtained: Yes Systems reviewed as appropriate & no additional complaints except as documented Physical Exam General General appearance: alert and in no apparent distress Head Head exam: atraumatic Eye Eye exam: Present normal appearance ENT ENT exam: Present normal external ear exam Neck Neck exam: Present full ROM Chest Chest inspection: Present symmetric chest wall rise Respiratory Respiratory exam: Present normal lung sounds bilaterally; Absent respiratory distress Cardiovascular Cardiovascular exam: Present regular rate and normal rhythm Abdominal Exam Abdominal exam: Present soft, tenderness (Epigastric and right lower quadrant) and tenderness at McBurney's Point; Absent guarding, rigidity, heel tap sign or Rovsing's sign Extremities Exam Extremities exam: Present normal inspection Back Exam Back exam: Present normal inspection Neurological Exam Neurological exam: Present alert and oriented X3 Psychiatric Psychiatric exam: Present normal affect Skin Skin exam: Present warm and dry Medical Decision Making Medical Records Screening: Per USPSTF and CDC recommendations, given the prevalence of disease in our region, it is our hospital?s policy to screen for HIV and viral Hepatitis for all patients aged 18 and over and those with ongoing risk factors. Dwight Inquiry Pt receiving controlled substance: No Vital Signs: 08/06/25 10:23 08/06/25 10:49 08/06/25 11:00 Temperature 98.3 F Temperature Source Oral Pulse Rate 75 76 Pulse Rate [Right Radial] 90 Respiratory Rate 15 15 17 Blood Pressure 117/75 114/70 Blood Pressure [Right Arm] 154/92 H Blood Pressure Mean Blood Pressure Mean [Right Arm] 112 Blood Pressure Source [Right Arm] Automatic Cuff Blood Pressure Position [Right Arm] Supine 02 Sat by Pulse Oximetry 99 94 L 96 Oxygen Delivery Method Room Air Room Air Room Air 08/06/25 11:20 08/06/25 11:51 08/06/25 12:00 Temperature Temperature Source Pulse Rate 66 79 66 Pulse Rate [Right Radial] Respiratory Rate 15 16 Blood Pressure 123/77 121/74 113/67 Blood Pressure [Right Arm] Blood Pressure Mean 91 Blood Pressure Mean [Right Arm] Blood Pressure Source [Right Arm] Blood Pressure Position [Right Arm] 02 Sat by Pulse Oximetry 95 96 97 Oxygen Delivery Method Room Air Room Air Lab Data Lab Results 08/06/25 10:18: Urine Color Yellow, Urine Appearance Clear, Urine pH 5.5, Ur Specific [place] 1.029, Urine Protein 1+ A, Urine Glucose (UA) Negative, Urine Ketones 2+, Urine Blood Negative, Urine Nitrate Negative, Urine Bilirubin Negative, Urine Urobilinogen 0.2, Ur Leukocyte Esterase Negative, Urine RBC None, Urine WBC 3-5, Ur Squamous Epith Cells 5-10, Urine Bacteria 2+, Urine Mucus 1+ 08/06/25 10:25: WBC 11.8 H, RBC 5.87 H, Hgb 14.0, Hct 44.6, MCV 76.0 L, MCH 23.9 L, MCHC 31.4 L, RDW 15.6, Plt Count 260, MPV 11.3 H, Neut % (Auto) 92.8 H, Lymph % (Auto) 4.1 L, Hubbard % (Auto) 2.5, Eos % (Auto) 0.1, Baso % (Auto) 0.2, Neut # (Auto) 11.0 H, Lymph # (Auto) 0.5 L, Hubbard # (Auto) 0.3, Eos # (Auto) 0.0, Baso # (Auto) 0.0, Total Counted 100, Neutrophils % (Manual) 96 H, Lymphocytes % (Manual) 3 L, Basophils % (Manual) 1.0, Platelet Estimate Normal, Microcytosis 1+, PT 11.1, INR 1.00, APTT 24.5, Sodium 137, Potassium 4.3, Chloride 104, Carbon Dioxide 23, Anion Gap 14.3, BUN 13, Creatinine 0.60, Estimated Creat Clear 185, Estimated GFR 117, Est GFR ( Amer) 141, Glucose 113 H, Lactate 1.0, Calcium 9.7, Total Bilirubin 0.7, AST 35, ALT 25, Alkaline Phosphatase 75, C-Reactive Protein 26.5 H, Total Protein 8.9 H, Albumin 4.8, Globulin 4.1 H, Albumin/Globulin Ratio 1.2, Lipase 63, Serum HCG, Qual Negative 08/06/25 10:25 08/06/25 10:25 Orders (Tests/Meds): ED MEDICATIONS Discontinued Medications Generic Name Dose Route Start Last Admin Trade Name Wolfgangq PRN Reason Stop Dose Admin Lactated Ringer's 1,000 mls @ 999 mls/hr 08/06/25 10:36 08/06/25 12:19 Lactated Ringer's 1000 Ml Bag IV 08/06/25 11:36 Infused .Q1H1M ONE Infusion Iopamidol 75 ml 08/06/25 11:37 08/06/25 11:37 Iopamidol-370 (76%);100ml Bottle IV 08/06/25 11:38 75 ml ONCE ONE Administration Ketorolac Tromethamine 15 mg 08/06/25 10:36 08/06/25 10:45 Ketorolac 15mg/Ml Vial IV 08/06/25 10:37 15 mg ONCE ONE Administration Ondansetron HCl 4 mg 08/06/25 10:36 08/06/25 10:45 Ondansetron 4mg/2ml Vial IV 08/06/25 10:37 4 mg ONCE ONE Administration Sodium Chloride 10 ml 08/06/25 11:37 08/06/25 11:37 Sodium Chloride 0.9% 10ml Syr (Rad Only) IV 08/06/25 11:38 10 ml ONCE ONE Administration ORDERS Category Date Time Status CT abdomen pelvis w con Stat Cat Scan 08/06/25 10:36 Completed POCUS Point of Care (ER Only) Stat Exams 08/06/25 10:48 Completed CBC w/Auto Diff [Complete Blood Count Auto Diff] Stat Lab 08/06/25 10:25 Completed CMP [Comprehensive Metabolic Panel] Stat Lab 08/06/25 10:25 Completed CRP [C-Reactive Protein] Stat Lab 08/06/25 10:25 Completed Diarrhea 23 Panel, PCR Stat Lab 08/06/25 11:45 Received Lactic Acid Stat Lab 08/06/25 10:25 Completed Lipase Stat Lab 08/06/25 10:25 Completed PT INR [Prothrombin Time INR] Stat Lab 08/06/25 10:25 Completed PTT [Activated Partial Thrombo Time] Stat Lab 08/06/25 10:25 Completed Serum [HCG Qualitative, Serum] Stat Lab 08/06/25 10:25 Completed UA [Urinalysis and Microscopic] Stat Lab 08/06/25 10:18 Completed Urine Culture Stat Micro 08/06/25 10:18 Received Medical Decision Narrative: Marielena Brower is a 30F with a history of tubal ligation, hypertension anxiety, depression who presents to the emergency department for complaints of nausea, vomiting and diarrhea. Patient states that she was woken at 2 AM with Was episodes of nonbloody diarrhea as well as approximately 10 episodes of nonbloody nonbilious vomiting. She states that she is also having right upper and epigastric abdominal pain associated with this. She thinks she might have a stomach bug she denies any chest pain or shortness of breath. She denies any fevers. She denies any dysuria or hematuria. On arrival, patient blood pressure is hypertensive at 154/92, heart rate within normal limits, afebrile, oxygen saturation 99% on room air. Physical exam, stated above, revealed a nontoxic-appearing female in no distress. She has tenderness at McBurney's point and epigastric region. Some mild left lower quadrant tenderness as well. Abdomen is nonperitonitic and nondistended. Negative Rovsing, obturator and heeltap testing. Cardiopulmonary exam is unremarkable. Differential diagnosis includes, but is not limited to: Appendicitis, viral gastroenteritis, infectious colitis, ectopic , urinary tract infection, acute pancreatitis, low concern for ovarian torsion given location of patient's pain. Patient does not have any right upper quadrant tenderness but acute cholecystitis is on the differential. Workup in the emergency department included: CT abdomen pelvis with IV contrast, CBC with differential, CMP, CRP, PT/INR, PTT, urinalysis, lipase, serum test, diarrhea panel PCR. Patient was administered 1 L lactated ringer as well as 4 mg of IV Zofran for nausea and 15 mg IV Toradol for pain. Laboratories show leukocytosis with left shift, no anemia, platelets within normal limits. Coagulation studies within normal limits, CMP without LEO or electrolyte derangement. Glucose normal at 113. Liver enzymes and bilirubin within normal limits. CRP is elevated at 26.5. Negative test. Urinalysis without blood or evidence of infection. CT imaging was interpreted by me personally. There is thickening of and fluid- filled small bowel wall at the terminal ileum and distal small bowel consistent with enteritis. This is concerning for infectious versus inflammatory enteritis. See radiology report for details. Patient's GI panel is pending at this time and will take over an hour to result. On reassessment, patient remained in stable condition. Is felt that her symptomatology is likely from infectious enteritis and we will follow-up the results and call her if any medications need to be prescribed. I did encourage her to continue hydrating to avoid dehydration by drinking plenty of water, sugar-free Gatorade and Pedialyte. Will prescribe Zofran to help with nausea and vomiting. Return precautions were given. All questions were answered. She demonstrated understanding and was in agreement this plan. She was then discharged from the emergency department in stable condition. Procedures Limited Ultrasound Interpretation:: Limited RUQ ultrasound Indication: -Abdominal pain -Nausea/Vomiting Identified structures: -Gallbladder -Gallbladder wall -Common bile duct -Liver Findings: Sonographic Eller sign: Absent Gallstones: Absent Sludge: Absent Pericholecystic fluid: Absent Maximal GB wall thickness (mm): Normal is </= 3mm Normal Common bile duct width (mm): Normal is </= 6mm Normal Gallbladder width (cm): Normal is < 4cm Normal Gallbladder length (cm): Normal is < 10cm Normal Impression: -Normal gallbladder -Cholelithiasis -Cholecystitis -Choledocholithiasis Images were saved to permanent archive The study was technically adequate CPT 37947-24 This study was performed by me, and I personally interpreted all images/videos. Based on my clinical judgement, these images were adequate and did not necessitate further imaging. Critical Care Critical Care Time Critical Care Time: No
[2025-08-06 10:44] LABS: Hematocrit 44.6 % (37.0-47.0); Hemoglobin 14.0 g/dL (12.2-16.2); Immature Granulocytes % 0.3 %; Mean Corpuscular HGB Conc 31.4 g/dL (31.8-35.4); Mean Corpuscular Hemoglobin 23.9 pg (27.0-31.2); Mean Corpuscular Volume 76.0 fl (81-99); Nucleated Red Blood Cells % 0 %; Platelet Count 260 K/mm3 (142-424); Red Blood Count 5.87 M/mm3 (4.20-5.40); Red Cell Distribution Width-SD 42.8 fL; White Blood Count 11.8 K/mm3 (4.8-10.8)
[2025-08-06] MEDS: LACTATED RINGERS 1000ML 1,000 ML 999 ML IV (10:44)
[2025-08-06] MEDS: ONDANSETRON 4MG/2ML VIAL 4 MG IV (10:45)
[2025-08-06] MEDS: KETOROLAC 15MG/ML VIAL 15 MG IV (10:45)
[2025-08-06 10:47] LABS: Microscopic, Urine URINE MICROSCOPIC (MICROSCOPIC)
[2025-08-06 10:49] LABS: Bilirubin,Urine Negative (Negative); Color,Urine YELLOW (Yellow); Glucose,Urine (UA) Negative (Negative); Ketones,Urine 2+ (Negative); Leukocyte Esterase,Urine Negative (Negative); PH,Urine 5.5 (5.0-8.5); Protein,Urine 1+ (Negative); Urobilinogen,Urine 0.2 EU/dl (0.2)
[2025-08-06 10:50] LABS: Alanine Aminotransferase 25 U/L (12-78); Albumin Level 4.8 g/dl (3.5-5.0); Albumin/Globulin Ratio 1.2 (1.1-1.8); Alkaline Phosphatase 75 U/L (38-126); Anion Gap 14.3 mEq/L (5-15); Aspartate Amino Transferase 35 U/L (14-36); Bilirubin,Total 0.7 mg/dl (0.2-1.3); Blood Urea Nitrogen 13 mg/dl (7-17); Calcium 9.7 mg/dl (8.4-10.2); Carbon Dioxide 23 mmol/L (22.0-30.0); Chloride 104 mmol/L (98-107); Creatinine Clearance Estimated 185 mL/min (50-200); Creatinine,Serum 0.60 mg/dl (0.52-1.04); Estimated Glomerular Filt Rate 117 ml/min (>60); GFR (African American) 141 ML/MIN (>60); Globulin 4.1 g/dL (1.3-3.2); Glucose 113 mg/dl (74-100); Lipase 63 U/L (23-300); Potassium 4.3 mmoL/L (3.5-5.1); Sodium 137 mmol/L (136-145); Total Protein,Serum 8.9 g/dl (6.3-8.2)
[2025-08-06 10:53] LABS: Specific Gravity, Urine 1.029 (1.005-1.030)
[2025-08-06 10:55] LABS: C-Reactive Protein 26.5 mg/L (0-4)
[2025-08-06 11:03] LABS: Bacteria,Urine 2+ /lpf; Mucus,Urine 1+ /lpf
[2025-08-06 11:14] LABS: Microcytosis 1+; Total Cells Counted 100
[2025-08-06 11:20] LABS: Activated Partial Thrombo Time 24.5 seconds (22.8-30.6); INR 1.00 (0.9-1.1); Prothrombin Time 11.1 seconds (10.1-12.5)
[2025-08-06 11:30] LABS: HCG Qualitative, Serum Negative (Negative)
[2025-08-06] MEDS: IOPAMIDOL-370 (76%);100ML BOTTLE 75 ML IV (11:37)
[2025-08-06] MEDS: SODIUM CHLORIDE 0.9% 10ML SYR (RAD ONLY) 10 ML IV (11:37)
[2025-08-06 11:53] LABS: Adenovirus F 40/41, stool Not Detected (NotDetected); Clostridium Difficile A/B, PCR Not Detected (NotDetected); Cyclospora Cayetanesis Not Detected (NotDetected); Plesimonas Shigalloides, PCR Not Detected (NotDetected); Salmonella, PCR Not Detected (NotDetected); Shiga-like toxin E coli Not Detected (NotDetected); Shigella Enterovasive E coli Not Detected (NotDetected); Vibrio, PCR Not Detected (NotDetected); Yersinia Entercolitica, PCR Not Detected (NotDetected)
--- NOTE | 2025-08-09 08:14 | PC.NURSE ---
Urine culture results reviewed by Dr. Barrios. No new orders received at this time.
== END 2025-08-06 12:49 | disposition home or self-care (01) ==
PROVIDERS: Emergency Provider Student in an Organized Health Care Education/Training Program; PCP Nurse Practitioner
DX: R10.13 Epigastric pain (principal); K52.9 Noninfective gastroenteritis and colitis, unspecified; R11.2 Nausea with vomiting, unspecified; D72.829 Elevated white blood cell count, unspecified
CPT/HCPCS: 74177; 80053; 81001; 83605; 83690; 84703; 85007; 85025; 85027; 85610; 85730; 86140; 87086; 87507; 96361; 96374; 96375; 99285; J1885; J2405; J7120; Q9967